=== PATIENT | female | born 1970 | race Caucasian/White ===

== ENCOUNTER 2019-04-14 14:02 | Observation (INO) | payer OTHER ==
[~2019-04-14] VITALS: Ht 153.2 cm; Wt 68.0 kg
[~2019-04-14 14:02] MED LIST: DEXILANT30 MG PO; Z.0.LEVOTHYROXINE25 PO; Z.0.LIPITOR10 MG PO; Z.0.NEXIUM40 MG PO; Z.0.ZYRTEC10 M3 PO
--- OUTSIDE RECORDS SUMMARY | 2019-04-14 14:05 | XMS REPORT | Clinical Summary ---
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 tablet 10/01/2018 Discontinued (Dose adjustment) NATURE-THROID 97.5 mg TK 1 T PO QD 2 tablet 7 Active Problems Problem Noted Date Dizziness 10/01/2018 Stress and adjustment reaction 10/01/2018 Encounters Care Team Description Date Type Specialty Carl Trinidad MA 10/05/2018 Telephone Neurology Renea Abarca MD Dizziness (Primary Dx); Stress and adjustment reaction 10/01/2018 Office Visit Neurology after 04/13/2018 Family History Medical History Relation Name Comments Suicide Attempts Father Kidney failure Mother Relation Name Status Comments Father Mother Social History Date Tobacco Use Types Packs/Day Years Used Never Smoker Smokeless Tobacco: Never Used Drinks/Week oz/Week Comments Alcohol Use 1 Glasses of wine 1.0 Yes Sex Assigned at Date Recorded Not on file Industry Job Start Date Occupation Not on file Not on file Not on file Travel End Travel History Travel Start No recent travel history available. 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 CHEMISTRY Pulse - - Temperature - - Respiratory Rate - - Oxygen Saturation - - Inhaled Oxygen Concentration 68.1 kg (150 lb 3.2 oz) 10/01/2018 8:13 AM MEDICAL TECHNOLOGIST CHEMISTRY Weight 160 cm (5' 3") 10/01/2018 8:13 AM MEDICAL TECHNOLOGIST CHEMISTRY Height 26.61 10/01/2018 8:13 AM MEDICAL TECHNOLOGIST CHEMISTRY Body Mass Index Plan of Treatment Health Maintenance Due Date Last Done Comments CERVICAL CANCER SCREENING 02/16/1993 INFLUENZA VACCINE 03/17/2019 Results Not on fileafter 04/13/2018 Insurance Type Payer Benefit Subscriber ID Effective Phone Address Plan / Dates Group PPO AETNA AETNA PPO xxxxxxxxxx [id number] OPEN resent CHOICE Advance Directives For more information, please contact: [phone] 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
--- OUTSIDE RECORDS SUMMARY | 2019-04-14 14:06 | XMS REPORT | Summary of Care ---
Author Author [facility] Organization [facility] Address Unknown Phone Unavailable Encounter HQ Otoniel(YAZAN) [id number] Date(s): 01/13/18 - 01/13/18 [facility] [address] [place] [address]- Discharge Disposition: Home or Self Care Attending Physician: Kalyani Montoya MD Referring Physician: Kalyani Montoya MD Vital Signs No data available for this section Problem List Condition Effective Dates Status Health Status Informant Acid Active reflux(Confirmed) Hyperlipidemia(Confi Active rmed) Allergies, Adverse Reactions, Alerts Substance Reaction Severity Status penicillins Codeine Phosphate,Miscellaneous Active Routes,compounding codeine Active Singulair Active Medications No data available for this section Results No data available for this section Immunizations No data available for this section Procedures Procedure Date Related Diagnosis Body Site Status Appendectomy1 Completed Cervical ablation Completed Cholecystectomy Completed Excisional biopsy of breast mass2 Completed Fundoplication3 Completed Operation4 Completed [id number] Social History Social History Type Response Alcohol Current, Type Beer, Wine, Liquor. Frequency: 1-2 times per month. Previous treatment: None. Smoking Status Never smoker; Exposure to Tobacco Smoke None; Cigarette Smoking Last 365 Days No; Reg Smoking Cessation Counseling No entered on: 09/29/16 Assessment and Plan No data available for this section
--- OUTSIDE RECORDS SUMMARY | 2019-04-14 14:06 | XMS REPORT ---
[facility] Address Unknown Phone Unavailable Care Team Providers Care Party Chief Name Role Phone Unavailable Unavailable Payers Payer Name Policy Type Policy Number Effective Date Expiration Date Problems This patient has no known problems. Allergies, Adverse Reactions, Alerts Allergy Name Allergy Type Status Severity Reaction(s) Onset Date Inactive Date Treating Clinician Comments Penicillins DA Active 2018-10-05 00:00:00 codeine DA Active 2018-10-05 00:00:00 Medications This patient has no known medications. Results Test Description Test Time Test Comments Text Results Atomic Results Result Comments BASIC METABOLIC PANEL 2018-10-05 15:07:00 SODIUM (test code=NA) 141 mEq/L 134-147 POTASSIUM (test code=K) 3.8 mEq/L 3.4-5.0 CHLORIDE (test code=CL) 109 mEq/L 100-108 CARBON DIOXIDE (test code=CO2) 27 mEq/L 21-33 ANION GAP (test code=GAP) 9 0-20 GLUCOSE (test code=GLU) 87 mg/dL 70-110 BLOOD UREA NITROGEN (test code=BUN) 12 mg/dL 7-18 GLOMERULAR FILTRATION RATE (test code=GFR) 77.2 95-105 Units of measure=ml/min/1.73 m2 CREATININE (test code=CREAT) 0.8 mg/dL 0.6-1.3 CALCIUM (test code=CA) 8.8 mg/dL 8.0-10.5 [id number] 15:07:00* Test Item Value Reference Range Comments TROPONIN-I (test code=TROPI) < 0.015 ng/mL 0.000-0.045 Negative: <=0.045 Positive: >=0.046 Correlation with serial results, other cardiac markers andclinical findings is necessary to determine the clinicalsignificance of this result. Results using different methodologies should not be comparedto one another as quantitative results may vary by method. [id number] 15:06:00* Test Item Value Reference Range Comments D-DIMER (test code=DDIMER) 416 ng/mlFEU <=500 THROMBOSIS AND/OR PULMONARY EMBOLISM AND THE CLINICAL CUT- OFF VALUE FOR EXCLUSION (500 ng/mL FEU) OF THESE CONDITIONSIS VALIDATED BY THE HOSE TUBING BACKER OF THE METHOD. A NEGATIVE D-DIMER RESULT WHEN COMBINED WITH A CLINICALASSESSMENT OF LOW PRETEST PROBABILITY HAS BEEN SHOWN TO HAVEA HIGH NEGATIVE PREDICTIVE VALUE OF DVT OR PE. D-DIMER VALUES >500 ng/mL FEU ARE NOT DIAGNOSTIC FOR DVT, PEor DIC WITHOUT OTHER CONFIRMATORY TESTS AND APPROPRIATECLINICAL EUALUATIONS. CBC W/AUTO [id number] 14:56:00* Test Item Value Reference Range Comments WHITE BLOOD CELL (test code=WBC) 9.35 x10 3/uL 4.5-11.0 RED BLOOD CELL (test code=RBC) 4.83 x10 6/uL 3.54-5.02 HEMOGLOBIN (test code=HGB) 14.6 g/dL 11.0-15.0 HEMATOCRIT (test code=HCT) 44.8 % 33.0-45.0 MEAN CELL VOLUME (test code=MCV) 92.8 fL 81.0-99.0 MEAN CELL HGB (test code=MCH) 30.2 pg 27.0-33.0 MEAN CELL HGB CONCETRATION (test code=MCHC) 32.6 g/dL 33.0-37.0 RED CELL DISTRIBUTION WIDTH CV (test code=RDW) 12.2 % 11.5-14.5 RED CELL DISTRIBUTION WIDTH SD (test code=RDW-SD) 42.0 fL 37.0-54.0 PLATELET COUNT (test code=PLT) 334 x10 3/uL 150-400 MEAN PLATELET VOLUME (test code=MPV) 10.5 fL 7.0-9.0 NEUTROPHIL % (test code=NT%) 64.3 % 56.0-77.0 IMMATURE GRANULOCYTE % (test code=IG%) 0.3 % 0.0-2.0 LYMPHOCYTE % (test code=LY%) 26.1 % 14.0-32.0 MONOCYTE % (test code=MO%) 7.1 % 4.8-9.0 EOSINOPHIL % (test code=EO%) 1.8 % 0.3-3.7 BASOPHIL % (test code=BA%) 0.4 % 0.0-2.0 NUCLEATED RBC % (test code=NRBC%) 0.0 % 0-0 NEUTROPHIL # (test code=NT#) 6.01 x10 3/uL 2.0-7.6 IMMATURE GRANULOCYTE # (test code=IG#) 0.03 x10 3/uL 0.00-0.03 LYMPHOCYTE # (test code=LY#) 2.44 x10 3/uL 1.0-3.8 MONOCYTE # (test code=MO#) 0.66 x10 3/uL 0.1-0.8 EOSINOPHIL # (test code=EO#) 0.17 x10 3/uL 0.0-0.2 BASOPHIL # (test code=BA#) 0.04 x10 3/uL 0.0-0.2 NUCLEATED RBC # (test code=NRBC#) 0.00 x10 3/uL 0.0-0.1 MANUAL DIFF REQUIRED (test code=MDIFF) NO - XR CHEST 2 [id number] 14:11:00 FAX: Silvia An MD [phone] [place]: St: REG FAX: Leydi Hines MD [phone] Name: TEJA MÉNDEZ [facility] : 1970 Age/S: 48/F [address] [place] [address] Unit #: [id number] Loc: [place] [address] Phys: Silvia An MD Acct: [id number] Dis Date: Status: REG ER PHONE #: [phone] Exam Date: 10/05/2018 1401 FAX #: [phone] Reason: Chest Pain EXAMS: CPT CODE: [id number] XR CHEST 2 V 13302 EXAM: CHEST TWO VIEW HISTORY: 48 old female with chest pain COMPARISON: None. FINDINGS: The lungs are clear. The cardiomediastinal silhouette is normal for projection. No acute osseous abnormality. IMPRESSION: 1. No acute cardiopulmonary abnormality. SL: [id number] at 1411 Reported and signed by: Arun Jerez M.D. CC: Silvia An MD; Leydi Ledbetter M.D Technologist: RT Usha(R) Trnscrd Date/Time/By: 10/05/2018 (2989) : By: [email or web address] Orig Print D/T: S: 10/05/2018 (8089) PAGE 1 Signed Report SCR MAMM BILATERAL MARJORIE CAD [id number] 09:32:48 - SCR MAMM BILATERAL MARJORIE CAD DIGITALBILATERAL DIGITAL SCREENING MAMMOGRAM 3D/2D WITH CAD: 07/24/2018CLINICAL: Asymptomatic. Digital breast tomosynthesis was performed in addition to routine CC and MLO views. Current mammographic images were evaluated by either a [employer] M-Vu or a [employer] CAD (computer aided detection system). No prior exams were available for comparison. The tissue of both breasts is heterogeneously dense. This may lower the sensitivity of ma mmography. There is a benign intramammary node in both breasts. No suspicious mass, architectural distortion, malignant type calcification, or lymph node abno rmality detected. IMPRESSION: BENIGNThere is no mammographic evidence of malign terry. Resume annual screening mammography in one year. Malika lafleur l/:08/05/2018 09:32:48 Addiction Treatment Counselor: Carmita Waters, [facility]-FWletter sent: BIRADS 1-2 Normal Mammogram BI-RADS: 2 Benign
--- OUTSIDE RECORDS SUMMARY | 2019-04-14 14:06 | XMS REPORT | Summary of Care ---
Author Author [facility] Address Unknown Phone Unavailable Encounter HQ Encntr_alias(FIN) [id number] Date(s): 05/28/15 - 05/28/15 [facility] [address] [place], [place] [address]- [phone] Discharge Disposition: Home Attending Physician: Krissy Garcia MD Vital Signs No data available for this section Problem List No data available for this section Allergies, Adverse Reactions, Alerts Substance Reaction Severity Status codeine Active penicillins Codeine Phosphate,Miscellaneous Active Routes,compounding Singulair Active Medications No data available for this section Results No data available for this section Immunizations No data available for this section Procedures No data available for this section Social History No data available for this section Assessment and Plan No data available for this section
--- OUTSIDE RECORDS SUMMARY | 2019-04-14 14:06 | XMS REPORT | Continuity of Care Document ---
Author Author [place] Address Unknown Phone Unavailable Care Team Providers Care Survey Chief Name Role Phone Headspace Information Passman Unavailable Unavailable Problems Problem Status Onset Date Classification Date Reported Comments Source K21.9 Active 01/08/2018 [facility] Z12.31 Active 06/04/2016 [facility] Z12.13 - ENCNTR SCREEN FOR MALIGNANT NE Active 03/07/2016 [facility] K21.9, K44.9 Active 06/05/2015 [facility] UNK Active 06/05/2015 [facility] BLOATING; EARLY SATIETY Active 05/24/2015 [facility] GERD//ICD K21.9 Active 05/15/2015 [facility] Final: Abdominal distension (gaseous) 06/02/2015 [facility] Final: Early satiety 06/02/2015 [facility] Gastroesophageal reflux disease (disorder) [facility]) Active Problem 01/14/2019 [facility] Kidney stone (disorder) Active Problem 01/14/2019 [facility] GASTRO-ESOPHAGEAL REFLUX DISEASE WITHOUT Active [facility] DIAPHRAGMATIC HERNIA WITHOUT OBSTRUCTION Active [facility] Medications Medication Details Route Status Patient Instructions Ordering Provider Order Date Source Ketorolac Tromethamine 10 MG Oral Tablet 10 mg=1 tab, PO, Q6H, X 5 day, # 20 tab, 0 Refill(s), Pharmacy: [id number] No Longer Active 06/27/2018 [facility] Ondansetron 4 MG Disintegrating Tablet [Zofran] 4 mg=1 tab, PO, TID, Dissolve tab under tongue, # 3 tab, 0 Refill(s), Pharmacy: [id number] Active 06/27/2018 [facility] Tamsulosin hydrochloride 0.4 MG Oral Capsule [Flomax] 0.4 mg=1 cap, PO, Daily, # 30 cap, 0 Refill(s), Pharmacy: [id number] Active 06/27/2018 [facility] Zyrtec 10 mg, 2 tab, Route: PO, Drug form: TAB, Daily, Dosing Weight 68.324, kg, Start date: 06/12/15 9:00:00, Duration: 30 day, Stop date: 07/11/15 9:00:00Notes: (Same As: Zyrtec) No Longer Active 06/12/2015 [facility] heparin 5,000 unit, 1 mL, Route: SUB-Q, Drug form: INJ, Q12H, Dosing Weight 68.324, kg, Start date: 06/12/15 8:00:00, Duration: 30 day, Stop date: 07/11/15 21:00:00Notes: porcine heparin No Longer Active 06/12/2015 [facility] Thyroxine 25 microgram, 1 tab, Route: PO, Drug form: TAB, Q630AM, Dosing Weight 68.324, kg, Start date: 06/12/15 6:30:00, Duration: 30 day, Stop date: 07/11/15 6:30:00Notes: Take 1 hour before or 2 hours after meal; Enteral feeds may interefere with the absorption of this medication. (Same as:Levothroid) No Longer Active 06/12/2015 [facility] Ketorolac 15 mg, 1 mL, Route: IV, Drug form: INJ, Q6H, Dosing Weight 68.324, kg, Start date: 06/12/15 2:00:00, Duration: 1 day, Stop date: 06/12/15 20:00:00Notes: (Same as:Toradol) IV bolus must be given >15 seconds. Give IM administration slowly and deeply into the muscle. Not for use > 4 days. Inactive 06/12/2015 [facility] Ketorolac 15 mg, 1 mL, Route: IV, Drug form: INJ, Q6H, Dosing Weight 68.324, kg, Start date: 06/12/15 0:00:00, Stop date: 06/12/15 3:00:00Notes: (Same as:Toradol) IV bolus must be given >15 seconds. Give IM administration slowly and deeply into the muscle. Not for use > 4 days. No Longer Active 06/12/2015 [facility] Ketorolac 30 mg, 1 mL, Route: IV, Drug form: INJ, ONCE, Dosing Weight 68.324, kg, Start date: 06/11/15 20:17:00, Duration: 1 doses or times, Stop date: 06/11/15 20:17:00Notes: (Same as:Toradol) IV bolus must be given >15 seconds. Give IM administration slowly and deeply into the muscle. Not for use > 4 days MEDICATION WASTE Product Size: 30 mg Product Wasted: ___ mg Inactive 06/12/2015 [facility] Albuterol 0.83 MG/ML Inhalant Solution 0.5 mg, 0.6 mL, Route: INHALATION, Drug form: SOLN, Q4H, Dosing Weight 68.324, kg, Start date: 06/11/15 20:00:00, Duration: 30 day, Stop date: 07/11/15 16:00:00Notes: SEE RT DOCUMENTATION (Same as: Proventil) No Longer Active 06/12/2015 [facility] Acetaminophen 650 mg, 2 tab, Route: PO, Drug form: TAB, Q4H, Dosing Weight 68.324, kg, PRN Pain 1-3/Temp > 100.4 F, Start date: 06/11/15 19:22:00, Duration: 30 day, Stop date: 07/11/15 19:21:00Notes: Do not exceed 4 gm/day. (Same as: Tylenol) No Longer Active 06/12/2015 [facility] Albuterol 0.83 MG/ML Inhalant Solution 2.49 mg, 3 mL, Route: NEB, Drug form: SOLN, RQ4H, Dosing Weight 68.324, kg, Start date: 06/11/15 19:00:00, Duration: 30 day, Stop date: 07/11/15 15:00:00Notes: SEE RT DOCUMENTATION (Same as: Proventil) No Longer Active 06/12/2015 [facility] Acetaminophen 20 MG/ML / Hydrocodone Bitartrate 0.667 MG/ML Oral Solution 7.5 mL, Route: PO, Drug Form: SOLN, Dosing Weight 68.324, kg, Q6H, PRN Pain Score 4-6, Start date: 06/11/15 17:25:00, Duration: 30 day, Stop date: 07/11/15 17:24:00Notes: Do not exceed 4gm/day of acetaminophen. (Same as: Zolvit) No Longer Active 06/11/2015 [facility] Tylenol 650 mg, 20.31 mL, Route: PO, Drug form: LIQ, Q6H, Dosing Weight 68.324, kg, PRN Pain 1-3/Temp > 100.4 F, Start date: 06/11/15 17:25:00, Duration: 30 day, Stop date: 07/11/15 17:24:00Notes: Max van wjjoumefvq=2611 mg/day (4 g/day) (Same as: Tylenol) No Longer Active 06/11/2015 [facility] Levofloxacin 500 mg, 2 tab, Route: PO, Drug form: TAB, XVGF12P, Dosing Weight 68.324, kg, Start date: 06/11/15 17:00:00, Stop date: 07/10/15 17:00:00Notes: Do not give w/antacids, dairy pdt & minerals Take 1 hr before or 2 hr after dairy pdt (Same as:Levaquin) No Longer Active 06/11/2015 [facility] Morphine 4 mg, 2 mL, Route: IVP, Drug form: INJ, Q4H, Dosing Weight 68.324, kg, PRN Pain Score 1-5, Start date: 06/11/15 16:36:00, Duration: 30 day, Stop date: 07/11/15 16:35:00Notes: (Same as:MORPhine Sulfate) No Longer Active 06/11/2015 [facility] Sodium Chloride 0.154 MEQ/ML Injectable Solution 1,000 mL, Rate: 75 ml/hr, Infuse over: 13.3 hr, Route: IV, Dosing Weight 68.324 kg, Total Volume: 1,000, Start date: 06/11/15 16:36:00, Duration: 30 day, Stop date: 07/11/15 16:35:00 No Longer Active 06/11/2015 [facility] Zofran 4 mg, 2 mL, Route: IVP, Drug form: INJ, Q4H, Dosing Weight 68.324, kg, Start date: 06/11/15 16:00:00, Duration: 30 day, Stop date: 07/11/15 12:00:00Notes: (Same as: Zofran) MEDICATION WASTE Product Size: 4 mg Product Wasted: ___ mg No Longer Active 06/11/2015 [facility] heparin 5,000 unit, Route: SUB-Q, ONCE, Dosing Weight 68.324, kg, Start date: 06/11/15 11:23:00, Stop date: 06/11/15 11:23:00 Inactive 06/11/2015 [facility] Levaquin 500 mg, Route: IVPB, ONCE, Dosing Weight 68.324, kg, Start date: 06/11/15 11:23:00, Stop date: 06/11/15 11:23:00 Inactive 06/11/2015 [facility] Calcium Chloride 0.0014 MEQ/ML / Potassium Chloride 0.004 MEQ/ML / Sodium Chloride 0.103 MEQ/ML / Sodium Lactate 0.028 MEQ/ML Injectable Solution 1,000 mL, Rate: 25 ml/hr, Infuse over: 40 hr, Route: IV, Dosing Weight 68.324 kg, Total Volume: 1,000, Start date: 06/11/15 11:10:00, Duration: 30 day, Stop date: 07/11/15 11:09:00 Inactive 06/11/2015 [facility] pitavastatin 4 MG Oral Tablet [Livalo] 4 mg=1 tab, PO, Daily, # 30 tab, 1 Refill(s) Active 06/07/2015 [facility] cetirizine hydrochloride 10 MG Oral Tablet [Zyrtec] 10 mg=1 tab, PO, Daily, # 30 tab, 0 Refill(s) Active 06/07/2015 [facility] {7 (Ethinyl Estradiol 0.01 MG Oral Tablet) / 84 (Ethinyl Estradiol 0.02 MG / Levonorgestrel 0.1 MG Oral Tablet) } Pack [Amethia Lo Day] 1 tab, PO, Daily, 0 Refill(s) Active 06/07/2015 [facility] Esomeprazole 40 MG Enteric Coated Capsule [Nexium] 40 mg=1 cap, PO, Daily, # 30 cap, 0 Refill(s) Active 06/07/2015 [facility] levothyroxine 25 mcg (0.025 mg) oral tablet 25 microgram=1 tab, PO, Daily, # 30 tab, 0 Refill(s) Active 06/07/2015 [facility] Allergies, Adverse Reactions, Alerts Substance Category Reaction Severity Reaction type Status Date Reported Comments Source codeine Assertion Drug allergy Active [facility] penicillins Assertion Codeine Phosphate,Miscellaneous Routes,compounding Drug allergy Active [facility] Singulair Assertion Drug allergy Active [facility] Immunizations No Data Provided for This Section Results Order Name Results Value Reference Range Date Interpretation Comments Source URINE AND STOOL POC UA Uro 0.2 0.1 - 1.0 06/27/2018 [facility] URINE AND STOOL POC UA Turbidity Clear *NA* (06/26/18 7:39 PM) Clear 06/27/2018 [facility] URINE AND STOOL POC UA SG >=1.030 *ABN* (06/26/18 7:39 PM) <=1.030 06/27/2018 [facility] URINE AND STOOL POC UA Color Yellow *NA* (06/26/18 7:39 PM) Yellow 06/27/2018 [facility] URINE AND STOOL POC UA Bili Negative *NA* (06/26/18 7:39 PM) Negative 06/27/2018 [facility] URINE AND STOOL POC UA Glu Negative mg/dL Negative mg/dL 06/27/2018 [facility] URINE AND STOOL POC UA Ket Negative mg/dL Negative mg/dL 06/27/2018 [facility] URINE AND STOOL POC UA Prot Negative mg/dL Negative mg/dL 06/27/2018 [facility] URINE AND STOOL POC UA pH 5.0 5.0 - 8.0 06/27/2018 [facility] URINE AND STOOL POC UA Bld Moderate *ABN* (06/26/18 7:39 PM) Negative 06/27/2018 [facility] URINE AND STOOL POC UA LeukEst Negative *NA* (06/26/18 7:39 PM) Negative 06/27/2018 [facility] URINE AND STOOL POC UA Nit Negative *NA* (06/26/18 7:39 PM) Negative 06/27/2018 [facility] ELECTROLYTES AGAP 13.2 10.0 - 20.0 06/13/2015 [facility] ELECTROLYTES CO2 26 24 - 32 06/13/2015 [facility] ELECTROLYTES BUN 4 7 - 22 06/13/2015 [facility] ELECTROLYTES eGFR 91 06/13/2015 Result Comment: The eGFR is calculated using the CKD-EPI formula. In most young, healthy individuals the eGFR will be >90 mL/min/1.73m2. The eGFR declines with age. An eGFR of 60-89 may be normal in some populations, particularly the elderly, for whom the CKD-EPI formula has not been extensively validated. Use of the eGFR is not recommended in the following populations:

Individuals with unstable creatinine concentrations, including patients and those with serious co-morbid conditions.

Patients with extremes in muscle mass or diet.

The data above are obtained from the National Kidney Disease Education Program (NKDEP) which additionally recommends that when the eGFR is used in patients with extremes of body mass index for purposes of drug dosing, the eGFR should be multiplied by the estimated BMI. [facility] ELECTROLYTES Potassium Lvl 4.2 3.5 - 5.1 06/13/2015 [facility] ELECTROLYTES Glucose Lvl 106 70 - 99 06/13/2015 [facility] ELECTROLYTES Creatinine Lvl 0.8 0.5 - 1.4 06/13/2015 [facility] ELECTROLYTES Chloride Lvl 104 95 - 109 06/13/2015 [facility] ELECTROLYTES Sodium Lvl 139 135 - 145 06/13/2015 [facility] ELECTROLYTES Calcium Lvl 8.5 8.5 - 10.5 06/13/2015 [facility] HEMATOLOGY Eosinophils # 0.1 0.0 - 0.5 06/13/2015 [facility] HEMATOLOGY Monocytes # 0.9 0.0 - 0.8 06/13/2015 [facility] HEMATOLOGY Basophils # 0.1 0.0 - 0.2 06/13/2015 [facility] HEMATOLOGY Lymphocytes 11.7 20.0 - 40.0 06/13/2015 [facility] HEMATOLOGY Segs 79.2 45.0 - 75.0 06/13/2015 [facility] Lymphocytes # 1.5 1.0 - 5.5 06/13/2015 [facility] HEMATOLOGY Segs-Bands # 9.9 1.5 - 8.1 06/13/2015 [facility] HEMATOLOGY Eosinophils 1.2 0.0 - 4.0 06/13/2015 [facility] HEMATOLOGY Monocytes 7.0 2.0 - 12.0 06/13/2015 [facility] HEMATOLOGY Basophils 0.9 0.0 - 1.0 06/13/2015 [facility] HEMATOLOGY MPV 8.9 7.4 - 10.4 06/13/2015 [facility] HEMATOLOGY RDW 13.3 11.5 - 14.5 06/13/2015 [facility] HEMATOLOGY Platelet 274 133 - 450 06/13/2015 [facility] MCH 27.7 27.0 - 31.0 06/13/2015 [facility] HEMATOLOGY MCHC 32.1 32.0 - 36.0 06/13/2015 [facility] HEMATOLOGY Hct 37.3 36.0 - 48.0 06/13/2015 [facility] HEMATOLOGY MCV 86.3 80.0 - 98.0 06/13/2015 [facility] HEMATOLOGY Hgb 12.0 12.0 - 16.0 06/13/2015 [facility] HEMATOLOGY WBC 12.4 3.7 - 10.4 06/13/2015 [facility] HEMATOLOGY RBC 4.32 4.20 - 5.40 06/13/2015 [facility] ELECTROLYTES Chloride Lvl 106 95 - 109 06/12/2015 [facility] ELECTROLYTES Potassium Lvl 3.8 3.5 - 5.1 06/12/2015 [facility] ELECTROLYTES Sodium Lvl 140 135 - 145 06/12/2015 [facility] ELECTROLYTES eGFR 79 06/12/2015 Result Comment: The eGFR is calculated using the CKD-EPI formula. In most young, healthy individuals the eGFR will be >90 mL/min/1.73m2. The eGFR declines with age. An eGFR of 60-89 may be normal in some populations, particularly the elderly, for whom the CKD-EPI formula has not been extensively validated. Use of the eGFR is not recommended in the following populations:

Individuals with unstable creatinine concentrations, including patients and those with serious co-morbid conditions.

Patients with extremes in muscle mass or diet.

The data above are obtained from the National Kidney Disease Education Program (NKDEP) which additionally recommends that when the eGFR is used in patients with extremes of body mass index for purposes of drug dosing, the eGFR should be multiplied by the estimated BMI. [facility] ELECTROLYTES Total Protein 5.2 6.4 - 8.4 06/12/2015 [facility] ELECTROLYTES CO2 22 24 - 32 06/12/2015 [facility] ELECTROLYTES Creatinine Lvl 0.9 0.5 - 1.4 06/12/2015 [facility] ELECTROLYTES Glucose Lvl 117 70 - 99 06/12/2015 [facility] ELECTROLYTES Calcium Lvl 7.9 8.5 - 10.5 06/12/2015 [facility] ELECTROLYTES BUN 6 7 - 22 06/12/2015 [facility] ELECTROLYTES Globulin 2.5 2.0 - 4.0 06/12/2015 [facility] ELECTROLYTES A/G Ratio 1.1 0.7 - 1.6 06/12/2015 [facility] ELECTROLYTES B/C Ratio 7 6 - 25 06/12/2015 [facility] ELECTROLYTES AGAP 15.8 10.0 - 20.0 06/12/2015 [facility] ELECTROLYTES Bili Total 0.3 0.2 - 1.3 06/12/2015 [facility] ELECTROLYTES Alk Phos 45 39 - 136 06/12/2015 [facility] ELECTROLYTES AST 158 0 - 37 06/12/2015 [facility] ELECTROLYTES ALT 260 0 - 65 06/12/2015 [facility] ELECTROLYTES Albumin Lvl 2.7 3.5 - 5.0 06/12/2015 [facility] HEMATOLOGY MPV 9.0 7.4 - 10.4 06/12/2015 [facility] HEMATOLOGY RDW 13.1 11.5 - 14.5 06/12/2015 [facility] HEMATOLOGY MCH 27.7 27.0 - 31.0 06/12/2015 [facility] HEMATOLOGY Platelet 259 133 - 450 06/12/2015 [facility] HEMATOLOGY MCHC 32.1 32.0 - 36.0 06/12/2015 [facility] HEMATOLOGY RBC 4.10 4.20 - 5.40 06/12/2015 [facility] HEMATOLOGY WBC 14.0 3.7 - 10.4 06/12/2015 [facility] HEMATOLOGY MCV 86.2 80.0 - 98.0 06/12/2015 [facility] HEMATOLOGY Hgb 11.3 12.0 - 16.0 06/12/2015 [facility] HEMATOLOGY Hct 35.3 36.0 - 48.0 06/12/2015 [facility] CHEM PANEL Magnesium Lvl 1.3 1.8 - 2.4 06/11/2015 [facility] ELECTROLYTES AGAP 15.0 10.0 - 20.0 06/11/2015 [facility] ELECTROLYTES B/C Ratio 14 6 - 25 06/11/2015 [facility] ELECTROLYTES Globulin 2.7 2.0 - 4.0 06/11/2015 [facility] ELECTROLYTES A/G Ratio 1.1 0.7 - 1.6 06/11/2015 [facility] ELECTROLYTES eGFR 91 06/11/2015 Result Comment: The eGFR is calculated using the CKD-EPI formula. In most young, healthy individuals the eGFR will be >90 mL/min/1.73m2. The eGFR declines with age. An eGFR of 60-89 may be normal in some populations, particularly the elderly, for whom the CKD-EPI formula has not been extensively validated. Use of the eGFR is not recommended in the following populations:

Individuals with unstable creatinine concentrations, including patients and those with serious co-morbid conditions.

Patients with extremes in muscle mass or diet.

The data above are obtained from the National Kidney Disease Education Program (NKDEP) which additionally recommends that when the eGFR is used in patients with extremes of body mass index for purposes of drug dosing, the eGFR should be multiplied by the estimated BMI. [facility] ELECTROLYTES Bili Total 0.3 0.2 - 1.3 06/11/2015 [facility] ELECTROLYTES ALT 194 0 - 65 06/11/2015 [facility] ELECTROLYTES AST 169 0 - 37 06/11/2015 [facility] ELECTROLYTES Alk Phos 47 39 - 136 06/11/2015 [facility] ELECTROLYTES Calcium Lvl 8.0 8.5 - 10.5 06/11/2015 [facility] ELECTROLYTES Total Protein 5.6 6.4 - 8.4 06/11/2015 [facility] ELECTROLYTES Albumin Lvl 2.9 3.5 - 5.0 06/11/2015 [facility] ELECTROLYTES Creatinine Lvl 0.8 0.5 - 1.4 06/11/2015 [facility] ELECTROLYTES CO2 19 24 - 32 06/11/2015 [facility] ELECTROLYTES Glucose Lvl 119 70 - 99 06/11/2015 [facility] ELECTROLYTES BUN 11 7 - 22 06/11/2015 [facility] ELECTROLYTES Potassium Lvl 5.0 3.5 - 5.1 06/11/2015 [facility] ELECTROLYTES Sodium Lvl 138 135 - 145 06/11/2015 [facility] ELECTROLYTES Chloride Lvl 109 95 - 109 06/11/2015 [facility] HEMATOLOGY WBC 22.8 3.7 - 10.4 06/11/2015 [facility] HEMATOLOGY Hgb 12.2 12.0 - 16.0 06/11/2015 [facility] HEMATOLOGY RBC 4.44 4.20 - 5.40 06/11/2015 [facility] HEMATOLOGY Platelet 345 133 - 450 06/11/2015 [facility] HEMATOLOGY MPV 8.8 7.4 - 10.4 06/11/2015 [facility] MCHC 32.1 32.0 - 36.0 06/11/2015 [facility] HEMATOLOGY RDW 13.6 11.5 - 14.5 06/11/2015 [facility] HEMATOLOGY MCV 85.7 80.0 - 98.0 06/11/2015 [facility] HEMATOLOGY MCH 27.5 27.0 - 31.0 06/11/2015 [facility] HEMATOLOGY Hct 38.0 36.0 - 48.0 06/11/2015 [facility] HEMATOLOGY Monocytes # 1.0 0.0 - 0.8 06/11/2015 [facility] HEMATOLOGY Basophils # 0.1 0.0 - 0.2 06/11/2015 [facility] HEMATOLOGY Segs-Bands # 19.7 1.5 - 8.1 06/11/2015 [facility] HEMATOLOGY Lymphocytes # 1.9 1.0 - 5.5 06/11/2015 [facility] HEMATOLOGY Eosinophils 0.1 0.0 - 4.0 06/11/2015 [facility] HEMATOLOGY Basophils 0.6 0.0 - 1.0 06/11/2015 [facility] HEMATOLOGY Monocytes 4.6 2.0 - 12.0 06/11/2015 [facility] HEMATOLOGY Lymphocytes 8.4 20.0 - 40.0 06/11/2015 [facility] HEMATOLOGY Segs 86.3 45.0 - 75.0 06/11/2015 [facility] URINE CHEM U Preg Negative (06/11/15 10:15 AM) Negative 06/11/2015 [facility] BLOOD BANK RESULTS RBC product Product available (06/07/15 8:30 AM) 06/07/2015 [facility] BLOOD BANK RESULTS Antibody Scrn Negative (06/07/15 7:34 AM) 06/07/2015 [facility] BLOOD BANK RESULTS ABO/Rh AB POS 06/07/2015 [facility] CHEM PANEL Bili Total 0.3 0.2 - 1.3 06/07/2015 [facility] CHEM PANEL Alk Phos 52 39 - 136 06/07/2015 [facility] CHEM PANEL ALT 22 0 - 65 06/07/2015 [facility] CHEM PANEL AST 8 0 - 37 06/07/2015 [facility] CHEM PANEL Albumin Lvl 3.7 3.5 - 5.0 06/07/2015 [facility] CHEM PANEL Total Protein 7.5 6.4 - 8.4 06/07/2015 [facility] CHEM PANEL Globulin 3.8 2.0 - 4.0 06/07/2015 [facility] CHEM PANEL A/G Ratio 1.0 0.7 - 1.6 06/07/2015 [facility] CHEM PANEL B/C Ratio 19 6 - 25 06/07/2015 [facility] ENDOCRINOLOGY S Preg Negative *NA* (06/07/15 7:34 AM) Negative 06/07/2015 [facility] HEMATOLOGY Eosinophils 1.5 0.0 - 4.0 06/07/2015 [facility] HEMATOLOGY Segs 71.3 45.0 - 75.0 06/07/2015 [facility] HEMATOLOGY Basophils 0.3 0.0 - 1.0 06/07/2015 [facility] HEMATOLOGY Lymphocytes # 1.9 1.0 - 5.5 06/07/2015 [facility] HEMATOLOGY Monocytes 5.4 2.0 - 12.0 06/07/2015 [facility] HEMATOLOGY Segs-Bands # 6.2 1.5 - 8.1 06/07/2015 [facility] HEMATOLOGY Lymphocytes 21.5 20.0 - 40.0 06/07/2015 [facility] HEMATOLOGY Monocytes # 0.5 0.0 - 0.8 06/07/2015 [facility] HEMATOLOGY Eosinophils # 0.1 0.0 - 0.5 06/07/2015 [facility] HEMATOLOGY PTT 28.7 22.9 - 35.8 06/07/2015 [facility] HEMATOLOGY INR 0.91 0.85 - 1.17 06/07/2015 [facility] HEMATOLOGY PT 12.6 12.0 - 14.7 06/07/2015 [facility] URINE AND STOOL UA Hyal Cast 1 0 - 2 06/07/2015 [facility] URINE AND STOOL UA RBC 2 0 - 2 06/07/2015 [facility] URINE AND STOOL UA Bacteria Occasional /HPF None Seen /HPF 06/07/2015 [facility] URINE AND STOOL UA Mucus Few /LPF None Seen /LPF 06/07/2015 [facility] URINE AND STOOL UA Sq Epi Occasional /LPF Few /LPF 06/07/2015 [facility] URINE AND STOOL UA WBC 1 0 - 5 06/07/2015 [facility] URINE AND STOOL UA Ketones Negative *NA* (06/07/15 7:34 AM) Negative 06/07/2015 [facility] URINE AND STOOL UA Leuk Est Negative (06/07/15 7:34 AM) Negative 06/07/2015 [facility] URINE AND STOOL UA Bili Negative *NA* (06/07/15 7:34 AM) Negative 06/07/2015 [facility] URINE AND STOOL UA Blood Small *ABN* (06/07/15 7:34 AM) Negative 06/07/2015 [facility] URINE AND STOOL UA Glucose Negative (06/07/15 7:34 AM) Negative 06/07/2015 [facility] URINE AND STOOL UA Urobilinogen 0.2 0.1 - 1.0 06/07/2015 [facility] URINE AND STOOL UA Nitrite Negative (06/07/15 7:34 AM) Negative 06/07/2015 [facility] URINE AND STOOL UA Protein Negative (06/07/15 7:34 AM) Negative 06/07/2015 [facility] URINE AND STOOL UA Turbidity Clear (06/07/15 7:34 AM) Clear 06/07/2015 [facility] URINE AND STOOL UA pH 5.0 5.0 - 8.0 06/07/2015 [facility] URINE AND STOOL UA Spec Grav 1.025 <=1.030 06/07/2015 [facility] URINE AND STOOL UA Color Yellow *NA* (06/07/15 7:34 AM) Yellow 06/07/2015 [facility] Pathology Reports No Data Provided for This Section Diagnostic Reports Report Value Date Source Barium Swallow w Esophagus Function DX Patient Name: TEJA MÉNDEZ : 1970; Age: 47 years y/o Female MR: [id number] Study: Barium Swallow w Esophagus Function DX 01/13/2018 8:27 AM CDT Clinical Indication: - K21.9 Gastro-esophageal reflux disease without esophagitis. Status post fundoplication x2. Reflux type symptoms. COMPARISON: None FLUOROSCOPY TIME: 2 minutes Dose: 46.52mGy TECHNIQUE: Thin barium was utilized for recumbent prone oblique and LPO images. Thick barium was utilized for upright imaging of the esophagus and pharynx. Senthil cracker mixed with barium was given to evaluate motility with solids. FINDINGS: There is no delay in passage of the barium bolus from the pharynx into the esophagus. The cricopharyngeus relaxes normally. There is no evidence for cricopharyngeal bar or Zenker's diverticulum. Prone and LPO images of the esophagus reveal normal esophageal caliber. There is a 3-4 cm recurrent hernia of the left lip of the fundoplication. Small degree of reflux is noted to lower esophagus. Upright images with thick barium reveals no significant dysmotility. No mass lesions or strictures are visualized. Subsequently 2 separate swallows of a small piece of senthil cracker and barium were fluoroscopically followed through the length of the esophagus. There is no significant delay in passage of both solid boluses from the pharynx to the esophagus and subsequently into the stomach. IMPRESSION: 3-4 cm recurrent hernia of the left lip of the fundoplication. [id number] 01/13/2018 [facility] Digital Mammo Screen Lane MA w marjorie - DIGITAL MAMMO SCREEN LANE MA W MARJORIE BILATERAL DIGITAL SCREENING MAMMOGRAM 3D/2D WITH CAD: 06/07/2016 CLINICAL: Routine. 2D digital mammographic images and 3D digital tomosynthesis images were obtained in the CC and MLO projections. Current study was evaluated with a Computer Aided Detection (CAD) system. Comparison is made to exams dated: 05/28/2015 mammogram and 06/11/2009 mammogram - [facility]. The tissue of both breasts is heterogeneously dense, which could obscure detection of small masses. There are benign intramammary nodes in the right breast. There also is a benign intramammary node in the left breast. No significant masses, calcifications, or other findings are seen in either breast. There has been no significant interval change. IMPRESSION: BENIGN There is no mammographic evidence of malignancy. A 1 year screening mammogram is recommended. Mee ozuna/penrad:06/09/2016 08:22:41 Electrician Apprentice: Renetta Waters, [facility] This exam was dictated and interpreted by [id number] for [facility] Breast [place]. letter sent: Normal exam Mammogram BI-RADS: 2 Benign 06/07/2016 [facility] 1view DX PROCEDURE: Chest 1view CLINICAL INFORMATION Tube placement/removal/reposition COMPARISON: 05/2015 multiple x-rays Left apical pneumothorax is no longer visualized. Decreased left lower neck subcutaneous emphysema. Left lower lobe atelectasis with small effusion. Stable right middle lobe atelectasis. No pneumothorax. Normal pulmonary vasculature. SL: 13 06/13/2015 [facility] 1view DX CLINICAL HISTORY: Tube placement. One view chest. Comparison 06/11/2015. Developing bibasilar subsegmental atelectasis. Trace left apical pneumothorax. (This was present in retrospect on previous study and is now smaller). Improving subcutaneous emphysema at the base of the neck on the left. SL:13 06/12/2015 [facility] 1view DX Examination: Chest x-ray, single view History: Pain Post injury Comparison: 06/07/2015 Findings: The lungs are clear and without focal consolidation. The cardiomediastinal silhouette is within normal limits. No pleural effusion or pneumothorax is seen. The osseous structures are without focal abnormality. Mild left basilar scarring is seen. Left supraclavicular soft tissue gas is seen. IMPRESSION: No acute cardiopulmonary disease. SL: 16 06/11/2015 [facility] Chest 2 views DX Examination: Chest x-ray, 2 views History: Coughing Comparison: None. Findings: The lungs are clear and without focal consolidation. The cardiomediastinal silhouette is within normal limits. No pleural effusion or pneumothorax is seen. The osseous structures are without focal abnormality. IMPRESSION: No acute cardiopulmonary disease. SL: 16 06/07/2015 [facility] Stomach emptying NM Gastric Emptying Study. COMPARISON: Video esophagram 05/17/2015 TECHNIQUE: 1 mCi of sulfur colloid meal was administered orally. Images were performed in anterior projection and an excretion curve plotted. FINDINGS: There is prompt activity identified within the stomach but mild to moderate delay in excretion into the small bowel thereafter. The slope of the excretion curve is mildly flattened. The T half life is 147 minutes. (Normal range of 45min- 110min). % excretion at approx. 60 minutes: Essentially no excretion % excretion at approx. 90 minutes: 26% % excretion at approx. 120 minutes: 35% % excretion at approx. 180 minutes: 68% % excretion at approx. 240 minutes: 82% IMPRESSION: Moderate delay in gastric emptying. SL:13 05/30/2015 [facility] Digital Mammo Screen Lane MA w marjorie - DIGITAL MAMMO SCREEN LANE MA W MARJORIE BILATERAL DIGITAL SCREENING MAMMOGRAM 3D/2D WITH CAD: 05/28/2015 CLINICAL: Routine/R92.2. 2D digital mammographic images and 3D digital tomosynthesis images were obtained in the CC and MLO projections. Current study was evaluated with a Computer Aided Detection (CAD) system. Comparison is made to exam dated: 06/11/2009 mammogram - [facility]. The tissue of both breasts is heterogeneously dense, which could obscure detection of small masses. Multiple obscured and circumscribed masses are noted bilaterally which are fluctuating in size consistent with benign etiology. The previously described mass in the right breast 12 o'clock position is no longer visualized. The patient does not indicate surgery in her history intake form, but a scar marker is present on her right breast. There are post operative findings in the right breast. No significant masses, calcifications, or other findings are seen in either breast. There has been no significant interval change. IMPRESSION: BENIGN There is no mammographic evidence of malignancy. A 1 year screening mammogram is recommended. Andrew painting/kirt:05/28/2015 14:20:36 Electrician Apprentice: Andrew Quiñones, [facility] This exam was dictated and interpreted by [id number] at [facility]. letter sent: Bilateral Benign Mammogram BI-RADS: 2 Benign 05/28/2015 [facility] Barium Swallow w Esophagus Function DX EXAM: Esophagram HISTORY: History of Abigail fundoplication. Recurrent gastroesophageal reflux. COMPARISON: None TECHNIQUE: The patient was given thin barium and hamburger coated with barium and video and multiple spot images were obtained. Fluoro time 4.4 minutes. Dose 100 mGy. FINDINGS: Deglutition appears normal. No pharyngeal abnormality seen. No cricopharyngeal bar seen. With the patient in prone and supine positions, a small paraesophageal hiatal hernia is seen with an apparent channel from the distal esophagus to the hiatal hernia opacified with contrast and filling the hernia. With the patient upright, the channel and hernia do not significantly opacify with contrast and are not well visualized. To-and-fro motion of liquid barium is seen in the distal esophagus with patient supine and upright and similar to-and-fro motion is seen in the distal esophagus with patient ingesting hamburger in the upright position. The esophagus is normal caliber. No delay in gastric emptying. Impression: 1. Small paraesophageal hiatal hernia with apparent channel between the distal esophagus and the hernia may reflect unwrapping of the fundoplication. 2. Esophageal dysmotility with distal esophageal reflux with liquid and hamburger. SL:13 05/17/2015 [facility] Consultation Notes No Data Provided for This Section Discharge Summaries No Data Provided for This Section History and Physicals No Data Provided for This Section Vital Signs Vital Sign Value Date Comments Source Temperature Oral (F) 97.6 F 06/27/2018 [facility] Heart Rate 86 06/27/2018 [facility] Systolic (mm Hg) 115 06/27/2018 [facility] Diastolic (mm Hg) 75 06/27/2018 [facility] BMI Calculated 26.85 06/27/2018 [facility] Weight 68.75 06/27/2018 [facility] Height 160.02 cm 06/27/2018 [facility] Heart Rate 84 06/13/2015 [facility] Systolic (mm Hg) 133 06/13/2015 [facility] Diastolic (mm Hg) 90 06/13/2015 [facility] Respitory Rate 16 06/13/2015 [facility] Temperature Oral (F) 98.3 F 06/13/2015 [facility] Respitory Rate 18 06/13/2015 [facility] Systolic (mm Hg) 130 06/13/2015 [facility] Diastolic (mm Hg) 80 06/13/2015 [facility] Temperature Oral (F) 98.5 F 06/13/2015 [facility] Heart Rate 94 06/13/2015 [facility] Respitory Rate 18 06/13/2015 [facility] Heart Rate 98 06/13/2015 [facility] Systolic (mm Hg) 124 06/13/2015 [facility] Diastolic (mm Hg) 77 06/13/2015 [facility] Temperature Oral (F) 98.9 F 06/13/2015 [facility] Systolic (mm Hg) 103 06/07/2015 [facility] Diastolic (mm Hg) 75 06/07/2015 [facility] Respitory Rate 15 06/07/2015 [facility] Systolic (mm Hg) 111 06/07/2015 [facility] Diastolic (mm Hg) 85 06/07/2015 [facility] Respitory Rate 21 06/07/2015 [facility] Respitory Rate 13 06/07/2015 [facility] Systolic (mm Hg) 107 06/07/2015 [facility] Diastolic (mm Hg) 80 06/07/2015 [facility] Heart Rate 68 06/07/2015 [facility] BMI Calculated 27.55 06/07/2015 [facility] Weight 68.324 06/07/2015 [facility] Height 157.48 cm 06/07/2015 [facility] BMI Calculated 27.55 06/07/2015 [facility] Weight 68.324 06/07/2015 [facility] Height 157.48 cm 06/07/2015 [facility] Encounters Location Location Details Encounter Type Encounter Number Reason For Visit Attending Provider ADM Date DC Date Status Source [facility]patient [id number] [facility] 05/17/2015 05/18/2015 [facility] Outpatient [id number] Krissy Garcia 05/28/2015 05/29/2015 [facility] Outpatient [id number] [facility] 05/30/2015 05/31/2015 [facility] Outpatient [id number] Kalyani Morris 06/07/2015 06/07/2015 [facility] Inpatient [id number] Moy Martinez 06/11/2015 06/13/2015 [facility] Outpatient [id number] Leydi Ledbetter 06/07/2016 06/08/2016 [facility] Outpatient [id number] JACOBO STEELE 09/14/2016 [facility] Outpatient [id number] PAUL HAMPTON 09/29/[address] [facility] Outpatient [id number] [facility] 01/13/2018 01/14/2018 [facility] Outpatient [id number] MARGARITA JENKINS 06/26/2018 [facility] [place] Outpatient [id number] [facility] Jeyson 06/27/2018 06/27/2018 [facility] Procedures Procedure Code Date Perfomer Comments Source Appendectomy<sup>1</sup> [id number] 2008 [facility] Cholecystectomy [id number] [facility] Excisional biopsy of breast mass<sup>2</sup> [id number] 2008 [facility] Fundoplication<sup>3</sup> [id number] 2008 [facility] Operation<sup>4</sup> [id number] 2007 [facility] Cervical ablation [id number] [facility] Assessment and Plan Assessment and Plan Date Source Extracted from:Title: Clinical Document Author: Moy Martinez DO Date: 06/13/15 Progress Daily [facility] Completed: May, 10:53 by Moy Martinez DO RM: 338 - 1P, SE TEJA DANGELO 45y (: 1970) F Attending: Moy Martinez DO Service: Internal Medicine Reason for Admission: K21.9, K44.9 Working DRG: None Documented Code status: None Specified=FULL CODE Current diet: Isolation: None Documented Allergies: Singulair, codeine, penicillins(Codeine Phosphate,Miscellaneous Routes,compounding) SUBJECTIVE Patient seen and examined. Events noted overnight. Labs/Images reviewed improving, less pain, ambulating lots more OBJECTIVE Labs (Last four charted values) WBC H 12.4 (JUN 13) H 14.0 (JUN 12) H 22.8 (JUN 11) 8.8 (JUN 07) Hgb 12.0 (JUN 13) L 11.3 (JUN 12) 12.2 (JUN 11) 14.1 (JUN 07) Hct 37.3 (JUN 13) L 35.3 (JUN 12) 38.0 (JUN 11) 43.9 (JUN 07) Plt 274 (JUN 13) 259 (JUN 12) 345 (JUN 11) 338 (JUN 07) Na 139 (JUN 13) 140 (JUN 12) 138 (JUN 11) 139 (JUN 07) K 4.2 (JUN 13) 3.8 (JUN 12) 5.0 (JUN 11) 3.7 (JUN 07) CO2 26 (JUN 13) L 22 (JUN 12) L 19 (JUN 11) L 23 (JUN 07) Cl 104 (JUN 13) 106 (JUN 12) 109 (JUN 11) 106 (JUN 07) Cr 0.8 (JUN 13) 0.9 (JUN 12) 0.8 (JUN 11) 1.0 (JUN 07) BUN L 4 (JUN 13) L 6 (JUN 12) 11 (JUN 11) 19 (JUN 07) Glucose Random H 106 (JUN 13) H 117 (JUN 12) H 119 (JUN 11) 83 (JUN 07) Mg L 1.3 (JUN 11) Ca 8.5 (JUN 13) L 7.9 (JUN 12) L 8.0 (JUN 11) 8.9 (JUN 07) PT 12.6 (JUN 07) INR 0.91 (JUN 07) PTT 28.7 (JUN 07) ASSESSMENT and EXAM Gen: NAD, Alert, Awake HEENT: NC/AT, PERRLA, oral area clear and moist Neck: No LAD, No JVD, trachea midline Chest: CTAB, no c/w/r CV: RRR, S1, S2 GI: +BS, S mild distention, No organomegaly Ext: no c/c/e Neuro: AOx3, no gross deficits noted Skin: No notable rashes PLAN and TREATMENT ambulating toleratign diet d/w pt about post op instructions - no heavy lifting d/w to hold statin for 2 weeks post op before resuming ok to d/c home today when cleared by surgery DIAGNOSES and PROBLEMS 1. Abigail fundoplication, status post reduction with hiatal hernia repair. 2. Transaminitis secondary to surgery. 3. Hypothyroidism. Ready for Discharge (Yes/No)? [place] still necessary (Yes/No): Line still necessary (Yes/No): 24hr Labs 06/13 0818 Glucose Lvl 106 H BUN 4 L Creatinine Lvl 0.8 Sodium Lvl 139 Potassium Lvl 4.2 Chloride Lvl 104 CO2 26 AGAP 13.2 Calcium Lvl 8.5 eGFR 91 WBC 12.4 H RBC 4.32 Hgb 12.0 Hct 37.3 MCV 86.3 MCH 27.7 MCHC 32.1 RDW 13.3 Platelet 274 MPV 8.9 Segs 79.2 H Monocytes 7.0 Lymphocytes 11.7 L Eosinophils 1.2 Basophils 0.9 Segs-Bands # 9.9 H Lymphocytes # 1.5 Monocytes # 0.9 H Eosinophils # 0.1 Basophils # 0.1 Vitals Tmp(F) Pulse BP RR SpO2 FIO2 06/13 07:59 98.3 84 133/90 16 98 --- 06/13 07:38 ---- --- ----- 18 95 21% 06/13 04:00 98.5 94 130/80 18 95 --- 06/13 00:00 98.9 98 124/77 18 98 --- 06/12 20:00 98 84 129/86 18 95 --- 24 Hr Tmax: 98.9F (37.17c) at 06/13 00:00 Vital Signs are the last 5 in the past 48 hours. Date Wt(kg) Wt(lb) Ht(cm) Ht(in) Method 06/07 (initial) 68.32 150.31 Measured 06/07 157.48 62.00 Stated I&O Record In Out Bal 06/13 24hr Tot 12 0 12 06/12 24hr Tot 32 0 32 Medications (10) Active Scheduled Meds (7): 06/11/15 albuterol (albuterol 0.083% inhalation solution) 2.49 mg NEB RQ4H 06/11/15 albuterol (albuterol 0.083% inhalation solution) 0.5 mg INHALATION Q4H 06/12/15 cetirizine (ZyrTEC) 10 mg PO Daily 06/12/15 heparin 5,000 unit SUB-Q Q12H 06/11/15 levofloxacin 500 mg PO [id number] 06/12/15 levothyroxine 25 microgram PO Q630AM 06/11/15 ondansetron (Zofran) 4 mg IVP Q4H Unscheduled Meds: None PRN Meds (3): 06/11/15 acetaminophen-hydrocodone (acetaminophen-hydrocodone 300 mg-10 mg/15 mL oral liquid) 7.5 mL PO Q6H 06/11/15 acetaminophen (Tylenol) 650 mg PO Q6H 06/11/15 acetaminophen 650 mg PO Q4H One Time Meds: None Continuous Infusions: None Extracted from:Title: Clinical Document Author: Kalyani Montoya MD Date: 06/11/15 PATIENT NAME: TEJA MÉNDEZ DATE OF OPERATION/PROCEDURE: 06/11/2015 PREPROCEDURE DIAGNOSES: 1. S/P Laparoscopic Abigail fundoplication in 2009 2. Twisted, herniated and partially undone Abigail fundoplication 2. Recurrent Hiatal hernia with paraesophageal component 3. Heartburn, nocturnal regurgitation and shortness of breath in supine position. POSTPROCEDURE DIAGNOSES: 1. S/P Laparoscopic Abigail fundoplication in 2009 2. Twisted, herniated and partially undone Abigail fundoplication 2. Recurrent Hiatal hernia with paraesophageal component 3. Heartburn, nocturnal regurgitation and shortness of breath in supine position. PROCEDURES: 1. Redo Laparoscopic reduction of twisted, hernaited and partailly undone Abigail fundoplication with recurrent hiatal hernia and paraesophageal component 2. laparoscopic lysis of adhesions 3. Laparoscopic repair of diaphragmatic hiatal hernia with primary closure and Acell mesh reinforcement 4. Take down of Abigail fundoplication 5. Toupet fundoplication 6. Flexible transoral esophagogastroscopy to assess the fundoplication and presence of leak RN NEONATAL ICU: Jazmin Roldan and Isael Castillo SURGEON: Kalyani Montoya. INDICATIONS FOR THE PROCEDURE: The patient is a 49 year-old female S/P laparoscopic Abigail fundoplication in 2009. she did well until 2011 when she had Gallbladder disease with forceful vomiting, and she then presented with progressive heartburn, nocturnal regurgitation and shortness of breath in supine position. The video esophagram showed a three cm hiatal hernia with paraesophageal component, adequate esophageal clearance and adequate passage of the barium form the stomach into the small bowel. The upper endoscopy showed a three cm hiatal hernia with paraesophageal component and twisted, herniated and partially undone Abigail f undoplication, and no retained food in the stomach. Esophageal motility study showed 100% peristaltic esophageal contractions with amplitude of contractions within normal limits. The gastric emptying showed a t1/2 of 147 minutes. Our plan was to perform a redo Laparoscopic reduction of twisted, hernaited and partailly undone Abigail fundoplication with recurrent hiatal hernia and paraesophageal component. laparoscopic lysis of adhesions, Laparoscopic repair of diaphragmatic hiatal hernia with primary closure and Acell mesh reinforcement, take down of Abigail fundoplication, Toupet fundoplication and a flexible transoral esophagogastroscopy to assess the fundoplication and presence of leak. The risks of the procedure including infection, bleeding, injury to the esophagus, stomach, spleen, postoperative leak, intraoperative cardiac event, postoperative intubation, sepsis, risk of conversion to open procedure, recurrent hernia and were all explained to the patient. She understood and agreed to proceed. PROCEDURE: Patient was brought to the operating room and was placed on the operating table in the supine position. After undergoing general endotracheal anesthesia, the patient's abdomen was then prepped and draped in the usual sterile fashion. Patient was placed in the reverse Trendelenburg position with the legs spread apart and secured in the leg holders. A small incision was made 2/3 of distance between the xyphoid and the umbilicus. The optic port was used and usig an 11 mm port entrance to the abdominal cavity was obtained under direct vision and without injury to the intraabdominal structures. There were no adehesions in the lower part of the abdomen. One 12 mm port was placed in the left upper quadrant. An 11 mm port was placed in the left flank and a 5 mm port was placed in the right upper quadrant. A 5 mm subxyphoid port was placed and the left lateral segment of the liver was retracted superiorly and to kristian right. The lesser curvature of the stomach was severely adhered to the liver. This part of the operation was very tidious since the adhesions were very dense and there was no plane of separation between the stomach and the liver. After meticulous and lengthy dissection the lesser curvature was from the liver. The Abigail fundoplication seemed to be herniated, twisted and partially undone. We continued our dissection very meticulously into the mediastinum and the stomach from the right fady and the left fady. This part of the operation was very tedious due to severe adhesions between the herniated stomach and the mediastinal structures including the aorta, and was done very carefully without any injury to the stomach. Subsequently, the esophagus was identified. The right and left fady were identified. A [place] was placed around the esophagus and the esophagus was lifted up. Further mobilization of the esophagus was performed. Following full mobilization of the esophagus we had three cm intraabdominal esophageal length. We took down the remanant of the Abigail funoplication and brought the posterior wall of the stomach to the left side, to its normal anatomic position. The short gastric vessels were divided during the first operation. There were severe adhesion at the level of the posterior wall of the stomach which was adhered to the right fady and the liver, which were divided. There was an inflammatory tissue which seemed as a piece of mesh, adhered to the posterior wall of the stomach therefore, a wedge excision of the posterior wall of the stomach at the level of the fundus was performed and was sent to permanent pathology. An upper endoscopy was then performed which showed no evidence of esophageal or gastric leak. We were able to insufflate the stomach. Subsequently three interrupted figure of eight 0-Ethibond stitches were placed to close the crural opening. A stitch was then placed 6 cm from the gastroesophageal junction in the posterior wall of the stomach and this stitch was then brought up behind the esophagus to the right side. A Toupet fundoplication was performed by placing three 2-0 interrupted silk stitches between the stomach and the esophagus on each side to construct a 270 degree Toupet fundoplication, using a Tie-know device. An upper endoscopy was perfomed and showed no evidence of perforation. There was easy access into the stomach. Retroflexed view of the stomach showed a well formed Toupet fundoplication. Subsequently, a 4 x 5-cm piece of tailorel Acell mesh was placed over the crural closure and the tacking device was used to keep the mesh in place. Hemostasis was assessed and there was no evidence of bleeding. The cynthia was removed. All ports were removed under direct vision and the skin was closed with subcuticular stitches. The patient tolerated the procedure well and was extubated and transferred to the postanesthesia recovery room without any complications. I was scrubbed and present for the entire procedure. 06/13/2015 [facility] Plan of Care No Data Provided for This Section Social History Social History Date Source Social History TypeResponse Alcohol Current, Type Beer, Wine, Liquor. Frequency: 1-2 times per month. Previous treatment: None. Smoking Status Never smoker; Exposure to Tobacco Smoke None; Cigarette Smoking Last 365 Days No; Reg Smoking Cessation Counseling No entered on: 09/29/16 06/07/2015 [facility] Social History TypeResponse Alcohol Current, Type Beer, Wine, Liquor. Frequency: 1-2 times per month. Previous treatment: None. Smoking Status Never smoker; Exposure to Tobacco Smoke None; Cigarette Smoking Last 365 Days No; Reg Smoking Cessation Counseling No entered on: 06/26/18 06/07/2015 [facility] No data available for this section 05/29/2015 [facility] Family History No Data Provided for This Section Advance Directives No Data Provided for This Section Functional Status No Data Provided for This Section
--- OUTSIDE RECORDS SUMMARY | 2019-04-14 14:06 | XMS REPORT | Summary of Care ---
Author Author [facility] Organization [facility] Address Unknown Phone Unavailable Encounter NIC Frederick(YAZAN) [id number] Date(s): 06/07/15 - 06/07/15 [facility] [address] [place] [address]- Discharge Disposition: Home Attending Physician: Kalyani Montoya MD Referring Physician: Kalyani Montoya MD Vital Signs 1 2 3 Most recent to oldest [Reference Range]: 157.48 cm (06/07/15 8:25 AM) Height 103/75 mmHg (06/07/15 12:00 PM) 111/85 mmHg (06/07/15 11:45 AM) 107/80 mmHg (06/07/15 11:30 AM) Blood Pressure [90-140/60-90 mmHg] 15 BRMIN (06/07/15 12:00 PM) 21 BRMIN *HI* (06/07/15 11:45 AM) 13 BRMIN *LOW* (06/07/15 11:30 AM) Respiratory Rate [14-20 BRMIN] 68 bpm (06/07/15 9:15 AM) Peripheral Pulse Rate [60-100 bpm] 68.324 kg (06/07/15 8:25 AM) Weight 27.55 m2 (06/07/15 8:25 AM) Body Mass Index Problem List Condition Effective Dates Status Health Status Informant Acid Active reflux(Confirmed) Hyperlipidemia(Confi Active rmed) Allergies, Adverse Reactions, Alerts Substance Reaction Severity Status codeine Active penicillins Codeine Phosphate,Miscellaneous Active Routes,compounding Singulair Active Medications Amethia Lo oral tablet 1 tab, PO, Daily, 0 Refill(s) Start Date: 06/07/15 Status: Ordered levothyroxine 25 mcg (0.025 mg) oral tablet 25 microgram=1 tab, PO, Daily, # 30 tab, 0 Refill(s) Start Date: 06/07/15 Status: Ordered Livalo 4 mg oral tablet 4 mg=1 tab, PO, Daily, # 30 tab, 1 Refill(s) Start Date: 06/07/15 Status: Ordered NexIUM 40 mg oral delayed release capsule 40 mg=1 cap, PO, Daily, # 30 cap, 0 Refill(s) Start Date: 06/07/15 Status: Ordered ZyrTEC 10 mg oral tablet 10 mg=1 tab, PO, Daily, # 30 tab, 0 Refill(s) Start Date: 06/07/15 Stop Date: 07/07/15 Status: Ordered Results No data available for this section Immunizations No data available for this section Procedures Procedure Date Related Diagnosis Body Site Appendectomy1 Cholecystectomy Excisional biopsy of breast mass2 Fundoplication3 Operation4 [id number] Social History Social History Type Response Alcohol Current, Type Beer, Wine, Liquor. Frequency: 1-2 times per month. Previous treatment: None. Smoking Status Never smoker; Exposure to Tobacco Smoke None; Cigarette Smoking Last 365 Days No; Reg Smoking Cessation Counseling No Assessment and Plan No data available for this section
--- OUTSIDE RECORDS SUMMARY | 2019-04-14 14:06 | XMS REPORT | Summary of Care ---
Author Author [facility] Organization [facility] Address Unknown Phone Unavailable Encounter HQ Cristalntr_laury(FIN) [id number] Date(s): 05/30/15 - 05/30/15 [facility] [address] [place] [address]- [phone] Final: Abdominal distension (gaseous) Final: Early satiety Discharge Disposition: Home Attending Physician: Kalyani Montoya [...]
--- OUTSIDE RECORDS SUMMARY | 2019-04-14 14:06 | XMS REPORT | Summary of Care ---
Author Author [facility] Organization [facility] Address Unknown Phone Unavailable Encounter NIC Frederick(YAZAN) [id number] Date(s): 06/11/15 - 06/13/15 [facility] [address] [place] [address]- Discharge Disposition: Home Attending Physician: Moy Martinez DO Admitting Physician: Moy Martinez DO Referring Physician: Kalyani Montoya MD Vital Signs 1 2 3 Most recent to oldest [Reference Range]: 157.48 cm (06/07/15 7:03 AM) Height 98.3 DegF (06/13/15 7:59 AM) 98.5 DegF (06/13/15 4:00 AM) 98.9 DegF (06/13/15 12:00 AM) Temperature Oral [96.4-99.1 DegF] 133/90 mmHg (06/13/15 7:59 AM) 130/80 mmHg (06/13/15 4:00 AM) 124/77 mmHg (06/13/15 12:00 AM) Blood Pressure [90-140/60-90 mmHg] 16 BRMIN (06/13/15 7:59 AM) 18 BRMIN (06/13/15 7:38 AM) 18 BRMIN (06/13/15 4:00 AM) Respiratory Rate [14-20 BRMIN] 84 bpm (06/13/15 7:59 AM) 94 bpm (06/13/15 4:00 AM) 98 bpm (06/13/15 12:00 AM) Peripheral Pulse Rate [60-100 bpm] 68.324 kg (06/07/15 7:03 AM) Weight 27.55 m2 (06/07/15 7:03 AM) Body Mass Index Problem List Condition Effective Dates Status Health Status Informant Acid Active reflux(Confirmed) Hyperlipidemia(Confi Active rmed) Allergies, Adverse Reactions, Alerts Substance Reaction Severity Status codeine Active penicillins Codeine Phosphate,Miscellaneous Active Routes,compounding Singulair Active Medications acetaminophen 650 mg, 2 tab, Route: PO, Drug form: TAB, Q4H, Dosing Weight 68.324, kg, PRN [place] n 1-3/Temp > 100.4 F, Start date: 06/11/15 19:22:00, Duration: 30 day, Stop date: 07/11/15 19:21:00 Notes: Do not exceed 4 gm/day. (Same as: Tylenol) Start Date: 06/11/15 Stop Date: 06/13/15 Status: Discontinued acetaminophen-hydrocodone 300 mg-10 mg/15 mL oral liquid 7.5 mL, Route: PO, Drug Form: SOLN, Dosing Weight 68.324, kg, Q6H, PRN Pain Scor e 4-6, Start date: 06/11/15 17:25:00, Duration: 30 day, Stop date: 07/11/15 17:2 4:00 Notes: Do not exceed 4gm/day of acetaminophen. (Same as: Zolvit) Start Date: 06/11/15 Stop Date: 06/13/15 Status: Discontinued albuterol 0.083% inhalation solution 0.5 mg, 0.6 mL, Route: INHALATION, Drug form: SOLN, Q4H, Dosing Weight 68.324, k g, Start date: 06/11/15 20:00:00, Duration: 30 day, Stop date: 07/11/15 16:00:00 Notes: SEE RT DOCUMENTATION (Same as: Proventil) Start Date: 06/11/15 Stop Date: 06/13/15 Status: Discontinued albuterol 0.083% inhalation solution 2.49 mg, 3 mL, Route: NEB, Drug form: SOLN, RQ4H, Dosing Weight 68.324, kg, Star t date: 06/11/15 19:00:00, Duration: 30 day, Stop date: 07/11/15 15:00:00 Notes: SEE RT DOCUMENTATION (Same as: Proventil) Start Date: 06/11/15 Stop Date: 06/13/15 Status: Discontinued heparin 5,000 unit, Route: SUB-Q, ONCE, Dosing Weight 68.324, kg, Start date: 06/11/15 1 1:23:00, Stop date: 06/11/15 11:23:00 Start Date: 06/11/15 Stop Date: 06/11/15 Status: Completed heparin 5,000 unit, 1 mL, Route: SUB-Q, Drug form: INJ, Q12H, Dosing Weight 68.324, kg, Start date: 06/12/15 8:00:00, Duration: 30 day, Stop date: 07/11/15 21:00:00 Notes: porcine heparin Start Date: 06/12/15 Stop Date: 06/13/15 Status: Discontinued ketOROLAC 15 mg, 1 mL, Route: IV, Drug form: INJ, Q6H, Dosing Weight 68.324, kg, Start emeli e: 06/12/15 2:00:00, Duration: 1 day, Stop date: 06/12/15 20:00:00 Notes: (Same as:Toradol) IV bolus must be given >15 seconds. Give IM administration slowly and deeply into the muscle. Not for use > 4 days. Start Date: 06/12/15 Stop Date: 06/12/15 Status: Completed ketOROLAC 15 mg, 1 mL, Route: IV, Drug form: INJ, Q6H, Dosing Weight 68.324, kg, Start emeli e: 06/12/15 0:00:00, Stop date: 06/12/15 3:00:00 Notes: (Same as:Toradol) IV bolus must be given >15 seconds. Give IM administration slowly and deeply into the muscle. Not for use > 4 days. Start Date: 06/12/15 Stop Date: 06/11/15 Status: Canceled ketOROLAC 30 mg, 1 mL, Route: IV, Drug form: INJ, ONCE, Dosing Weight 68.324, kg, Start da te: 06/11/15 20:17:00, Duration: 1 doses or times, Stop date: 06/11/15 20:17:00 Notes: (Same as:Toradol) IV bolus must be given >15 seconds. Give IM administration slowly and deeply into the muscle.Not for use > 4 days MEDICATION WASTE Product Size: 30 mgProduct Wasted: ___ mg Start Date: 06/11/15 Stop Date: 06/11/15 Status: Completed Lactated Ringers Injection IV 1000 mL 1,000 mL, Rate: 25 ml/hr, Infuse over: 40 hr, Route: IV, Dosing Weight 68.324 kg , Total Volume: 1,000, Start date: 06/11/15 11:10:00, Duration: 30 day, Stop emeli e: 07/11/15 11:09:00 Start Date: 06/11/15 Stop Date: 06/11/15 Status: Discontinued Levaquin 500 mg, Route: IVPB, ONCE, Dosing Weight 68.324, kg, Start date: 06/11/15 11:23: 00, Stop date: 06/11/15 11:23:00 Start Date: 06/11/15 Stop Date: 06/11/15 Status: Completed levofloxacin 500 mg, 2 tab, Route: PO, Drug form: TAB, [id number], Dosing Weight 68.324, kg, Sta rt date: 06/11/15 17:00:00, Stop date: 07/10/15 17:00:00 Notes: Do not give w/antacids, dairy pdt & minerals Take 1 hr before or 2 hr after dairy pdt (Same as:Levaquin) Start Date: 06/11/15 Stop Date: 06/13/15 Status: Discontinued levothyroxine 25 microgram, 1 tab, Route: PO, Drug form: TAB, Q630AM, Dosing Weight 68.324, kg , Start date: 06/12/15 6:30:00, Duration: 30 day, Stop date: 07/11/15 6:30:00 Notes: Take 1 hour before or 2 hours after meal; Enteral feeds may interefere wi th the absorption of this medication. (Same as:Levothroid) Start Date: 06/12/15 Stop Date: 06/13/15 Status: Discontinued morphine Sulfate 4 mg, 2 mL, Route: IVP, Drug form: INJ, Q4H, Dosing Weight 68.324, kg, PRN Pain Score 1-5, Start date: 06/11/15 16:36:00, Duration: 30 day, Stop date: 07/11/15 16:35:00 Notes: (Same as:MORPhine Sulfate) Start Date: 06/11/15 Stop Date: 06/12/15 Status: Discontinued Sodium Chloride 0.9% IV 1,000 mL 1,000 mL, Rate: 75 ml/hr, Infuse over: 13.3 hr, Route: IV, Dosing Weight 68.324 kg, Total Volume: 1,000, Start date: 06/11/15 16:36:00, Duration: 30 day, Stop d ate: 07/11/15 16:35:00 Start Date: 06/11/15 Stop Date: 06/12/15 Status: Discontinued Tylenol 650 mg, 20.31 mL, Route: PO, Drug form: LIQ, Q6H, Dosing Weight 68.324, kg, PRN Pain 1-3/Temp > 100.4 F, Start date: 06/11/15 17:25:00, Duration: 30 day, Stop date: 07/11/15 17:24:00 Notes: Max fnsdzqcmgpxuk=7109 mg/day (4 g/day) (Same as: Tylenol) Start Date: 06/11/15 Stop Date: 06/13/15 Status: Discontinued Zofran 4 mg, 2 mL, Route: IVP, Drug form: INJ, Q4H, Dosing Weight 68.324, kg, Start emeli e: 06/11/15 16:00:00, Duration: 30 day, Stop date: 07/11/15 12:00:00 Notes: (Same as: Zofran) MEDICATION WASTE Product Size: 4 mgProduct Was dora: ___ mg Start Date: 06/11/15 Stop Date: 06/13/15 Status: Discontinued ZyrTEC 10 mg, 2 tab, Route: PO, Drug form: TAB, Daily, Dosing Weight 68.324, kg, Start date: 06/12/15 9:00:00, Duration: 30 day, Stop date: 07/11/15 9:00:00 Notes: (Same As: Zyrtec) Start Date: 06/12/15 Stop Date: 06/13/15 Status: Discontinued Results BLOOD BANK RESULTS 1 2 3 Most recent to oldest [Reference Range]: AB POS *Unknown* (06/07/15 7:34 AM) ABO/Rh Negative (06/07/15 7:34 AM) Antibody Scrn Product available (06/07/15 8:30 AM) RBC product ELECTROLYTES 1 2 3 Most recent to oldest [Reference Range]: 139 mEq/L (06/13/15 8:18 AM) 140 mEq/L (06/12/15 5:23 AM) 138 mEq/L (06/11/15 3:03 PM) Sodium Lvl [135-145 mEq/L] 4.2 mEq/L (06/13/15 8:18 AM) 3.8 mEq/L (06/12/15 5:23 AM) 5.0 mEq/L (06/11/15 3:03 PM) Potassium Lvl [3.5-5.1 mEq/L] 104 mEq/L (06/13/15 8:18 AM) 106 mEq/L (06/12/15 5:23 AM) 109 mEq/L (06/11/15 3:03 PM) Chloride Lvl [95-109 mEq/L] 26 mEq/L (06/13/15 8:18 AM) 22 mEq/L *LOW* (06/12/15 5:23 AM) 19 mEq/L *LOW* (06/11/15 3:03 PM) CO2 [24-32 mEq/L] 13.2 mEq/L (06/13/15 8:18 AM) 15.8 mEq/L (06/12/15 5:23 AM) 15.0 mEq/L (06/11/15 3:03 PM) AGAP [10.0-20.0 mEq/L] CHEM PANEL 1 2 3 Most recent to oldest [Reference Range]: 0.8 mg/dL (06/13/15 8:18 AM) 0.9 mg/dL (06/12/15:23 AM) 0.8 mg/dL (06/11/15 3:03 PM) Creatinine Lvl [0.5-1.4 mg/dL] 91 mL/min/1.73m2 1 *NA* (06/13/15 8:18 AM) 79 mL/min/1.73m2 2 *NA* (06/12/15:23 AM) 91 mL/min/1.73m2 3 *NA* (06/11/15 3:03 PM) eGFR 4 mg/dL *LOW* (06/13/15 8:18 AM) 6 mg/dL *LOW* (06/12/15 5:23 AM) 11 mg/dL (06/11/15 3:03 PM) BUN [7-22 mg/dL] 7 (06/12/15 5:23 AM) 14 (06/11/15 3:03 PM) 19 (06/07/15 7:34 AM) B/C Ratio [6-25] 106 mg/dL *HI* (06/13/15 8:18 AM) 117 mg/dL *HI* (06/12/15 5:23 AM) 119 mg/dL *HI* (06/11/15 3:03 PM) Glucose Lvl [70-99 mg/dL] 5.2 g/dL *LOW* (06/12/15 5:23 AM) 5.6 g/dL *LOW* (06/11/15 3:03 PM) 7.5 g/dL (06/07/15 7:34 AM) Total Protein [6.4-8.4 g/dL] 2.7 g/dL *LOW* (06/12/15 5:23 AM) 2.9 g/dL *LOW* (06/11/15 3:03 PM) 3.7 g/dL (06/07/15 7:34 AM) Albumin Lvl [3.5-5.0 g/dL] 2.5 g/dL (06/12/15 5:23 AM) 2.7 g/dL (06/11/15 3:03 PM) 3.8 g/dL (06/07/15 7:34 AM) Globulin [2.0-4.0 g/dL] 1.1 (06/12/15 5:23 AM) 1.1 (06/11/15 3:03 PM) 1.0 (06/07/15 7:34 AM) A/G Ratio [0.7-1.6] 8.5 mg/dL (06/13/15 8:18 AM) 7.9 mg/dL *LOW* (06/12/15 5:23 AM) 8.0 mg/dL *LOW* (06/11/15 3:03 PM) Calcium Lvl [8.5-10.5 mg/dL] 1.3 mg/dL *LOW* (06/11/15 3:03 PM) Magnesium Lvl [1.8-2.4 mg/dL] 260 unit/L *HI* (06/12/15 5:23 AM) 194 unit/L *HI* (06/11/15 3:03 PM) 22 unit/L (06/07/15 7:34 AM) ALT [0-65 unit/L] 158 unit/L *HI* (06/12/15:23 AM) 169 unit/L *HI* (06/11/15 3:03 PM) 8 unit/L (06/07/15 7:34 AM) AST [0-37 unit/L] 45 unit/L (06/12/15:23 AM) 47 unit/L (06/11/15 3:03 PM) 52 unit/L (06/07/15 7:34 AM) Alk Phos [39-136 unit/L] 0.3 mg/dL (06/12/15:23 AM) 0.3 mg/dL (06/11/15 3:03 PM) 0.3 mg/dL (06/07/15 7:34 AM) Bili Total [0.2-1.3 mg/dL] 1Result Comment: The eGFR is calculated using the [...] from the National Kidney Disease Education Program ( NKDEP) which additionally recommends that when the eGFR is used in patients with extremes of body mass index for purposes of drug dosing, the eGFR should be mul tiplied by the estimated BMI. 2Result Comment: The eGFR is calculated using the [...] from the National Kidney Disease Education Program ( NKDEP) which additionally recommends that when the eGFR is used in patients with extremes of body mass index for purposes of drug dosing, the eGFR should be mul tiplied by the estimated BMI. 3Result Comment: The eGFR is calculated using the [...] from the National Kidney Disease Education Program ( NKDEP) which additionally recommends that when the eGFR is used in patients with extremes of body mass index for purposes of drug dosing, the eGFR should be mul tiplied by the estimated BMI. ENDOCRINOLOGY 1 2 3 Most recent to oldest [Reference Range]: Negative *NA* (06/07/15 7:34 AM) S Preg [Negative] URINE CHEM 1 2 3 Most recent to oldest [Reference Range]: Negative (06/11/15 10: AM) U Preg [Negative] URINE AND STOOL 1 2 3 Most recent to oldest [Reference Range]: Clear (06/07/15 7:34 AM) UA Turbidity [Clear] Yellow *NA* (06/07/15 7:34 AM) UA Color [Yellow] 5.0 (06/07/15 7:34 AM) UA pH [5.0-8.0] 1.025 (06/07/15 7:34 AM) UA Spec Grav [<=1.030] Negative (06/07/15 7:34 AM) UA Glucose [Negative] Small *ABN* (06/07/15 7:34 AM) UA Blood [Negative] Negative *NA* (06/07/15 7:34 AM) UA Ketones [Negative] Negative (06/07/15 7:34 AM) UA Protein [Negative] 0.2 EU/dL (06/07/15 7:34 AM) UA Urobilinogen [0.1-1.0 EU/dL] Negative *NA* (06/07/15 7:34 AM) UA Bili [Negative] Negative (06/07/15 7:34 AM) UA Leuk Est [Negative] Negative (06/07/15 7:34 AM) UA Nitrite [Negative] 1 /HPF (06/07/15 7:34 AM) UA WBC [0-5 /HPF] 2 /HPF (06/07/15 7:34 AM) UA RBC [0-2 /HPF] Occasional /HPF *NA* (06/07/15 7:34 AM) UA Bacteria [None Seen /HPF] Occasional /LPF *NA* (06/07/15 7:34 AM) UA Sq Epi [Few /LPF] 1 /LPF (06/07/15 7:34 AM) UA Hyal Cast [0-2 /LPF] Few /LPF *NA* (06/07/15 7:34 AM) UA Mucus [None Seen /LPF] HEMATOLOGY 1 2 3 Most recent to oldest [Reference Range]: 12.4 K/CMM *HI* (06/13/15 8:18 AM) 14.0 K/CMM *HI* (06/12/15 5:23 AM) 22.8 K/CMM *HI* (06/11/15 3:03 PM) WBC [3.7-10.4 K/CMM] 4.32 M/CMM (06/13/15 8:18 AM) 4.10 M/CMM *LOW* (06/12/15 5:23 AM) 4.44 M/CMM (06/11/15 3:03 PM) RBC [4.20-5.40 M/CMM] 12.0 g/dL (06/13/15 8:18 AM) 11.3 g/dL *LOW* (06/12/15 5:23 AM) 12.2 g/dL (06/11/15 3:03 PM) Hgb [12.0-16.0 g/dL] 37.3 % (06/13/15 8:18 AM) 35.3 % *LOW* (06/12/15 5:23 AM) 38.0 % (06/11/15 3:03 PM) Hct [36.0-48.0 %] 86.3 fL (06/13/15 8:18 AM) 86.2 fL (06/12/15 5:23 AM) 85.7 fL (06/11/15 3:03 PM) MCV [80.0-98.0 fL] 27.7 pg (06/13/15 8:18 AM) 27.7 pg (06/12/15 5:23 AM) 27.5 pg (06/11/15 3:03 PM) MCH [27.0-31.0 pg] 32.1 g/dL (06/13/15 8:18 AM) 32.1 g/dL (06/12/15 5:23 AM) 32.1 g/dL (06/11/15 3:03 PM) MCHC [32.0-36.0 g/dL] 13.3 % (06/13/15 8:18 AM) 13.1 % (06/12/15 5:23 AM) 13.6 % (06/11/15 3:03 PM) RDW [11.5-14.5 %] 274 K/CMM (06/13/15 8:18 AM) 259 K/CMM (06/12/15 5:23 AM) 345 K/CMM (06/11/15 3:03 PM) Platelet [133-450 K/CMM] 8.9 fL (06/13/15 8:18 AM) 9.0 fL (06/12/15 5:23 AM) 8.8 fL (06/11/15 3:03 PM) MPV [7.4-10.4 fL] 79.2 % *HI* (06/13/15 8:18 AM) 86.3 % *HI* (06/11/15 3:03 PM) 71.3 % (06/07/15 7:34 AM) Segs [45.0-75.0 %] 11.7 % *LOW* (06/13/15 8:18 AM) 8.4 % *LOW* (06/11/15 3:03 PM) 21.5 % (06/07/15 7:34 AM) Lymphocytes [20.0-40.0 %] 7.0 % (06/13/15 8:18 AM) 4.6 % (06/11/15 3:03 PM) 5.4 % (06/07/15 7:34 AM) Monocytes [2.0-12.0 %] 1.2 % (06/13/15 8:18 AM) 0.1 % (06/11/15 3:03 PM) 1.5 % (06/07/15 7:34 AM) Eosinophils [0.0-4.0 %] 0.9 % (06/13/15 8:18 AM) 0.6 % (06/11/15 3:03 PM) 0.3 % (06/07/15 7:34 AM) Basophils [0.0-1.0 %] 9.9 K/CMM *HI* (06/13/15 8:18 AM) 19.7 K/CMM *HI* (06/11/15 3:03 PM) 6.2 K/CMM (06/07/15 7:34 AM) Segs-Bands # [1.5-8.1 K/CMM] 1.5 K/CMM (06/13/15 8:18 AM) 1.9 K/CMM (06/11/15 3:03 PM) 1.9 K/CMM (06/07/15 7:34 AM) Lymphocytes # [1.0-5.5 K/CMM] 0.9 K/CMM *HI* (06/13/15 8:18 AM) 1.0 K/CMM *HI* (06/11/15 3:03 PM) 0.5 K/CMM (06/07/15 7:34 AM) Monocytes # [0.0-0.8 K/CMM] 0.1 K/CMM (06/13/15 8:18 AM) 0.1 K/CMM (06/07/15 7:34 AM) Eosinophils # [0.0-0.5 K/CMM] 0.1 K/CMM (06/13/15 8:18 AM) 0.1 K/CMM (06/11/15 3:03 PM) Basophils # [0.0-0.2 K/CMM] 12.6 seconds (06/07/15 7:34 AM) PT [12.0-14.7 seconds] 0.91 (06/07/15 7:34 AM) INR [0.85-1.17] 28.7 seconds (06/07/15 7:34 AM) PTT [22.9-35.8 seconds] Immunizations No data available for this section Procedures Procedure Date Related Diagnosis Body Site Appendectomy1 Cholecystectomy Excisional biopsy of breast mass2 Fundoplication3 Operation4 [id number] Social History Social History Type Response Alcohol Current, Type Beer, Wine, Liquor. Frequency: 1-2 times per month. Previous treatment: None. Smoking Status Never smoker; Exposure to Tobacco Smoke None; Cigarette Smoking Last 365 Days No; Reg Smoking Cessation Counseling No Assessment and Plan Extracted from: Title: Clinical Document Author: Moy Martinez DO Date: 06/13/15 Progress Daily [facility] Completed: May, 10:53 by Moy Martinez DO RM: 338 - 1P, SE [id number] DELGADILLO [id number] (: 1970) F Attending: Moy Martinez DOPhone: Service: Internal Medicine Reason for Admission: K21.9, K44.9 Working DRG: None Documented Code status: None Specified=FULL CODECurrent diet: Isolation: None Documented Allergies: Singulair, codeine, penicillins(Codeine Phosphate,Miscellaneous Routes,compounding) SUBJECTIVE Patient seen and examined. Events noted overnight. Labs/Images reviewed improving, less pain, ambulating lots more OBJECTIVE Labs (Last four charted values) WBC H 12.4(JUN 13)H 14.0(JUN 12)H 22.8(JUN 11)8.8(JUN 07) Hgb 12.0(JUN 13)L 11.3(JUN 12)12.2(JUN 11)14.1(JUN 07) Hct 37.3(JUN 13)L 35.3(JUN 12)38.0(JUN 11)43.9(JUN 07) Plt 274(JUN 13)259(JUN 12)345(JUN 11)338(JUN 07) Na 139(JUN 13)140(JUN 12)138(JUN 11)139(JUN 07) K 4.2(JUN 13)3.8(JUN 12)5.0(JUN 11)3.7(JUN 07) CO2 26(JUN 13)L 22(JUN 12)L 19(JUN 11)L 23(JUN 07) Cl 104(JUN 13)106(JUN 12)109(JUN 11)106(JUN 07) Cr 0.8(JUN 13)0.9(JUN 12)0.8(JUN 11)1.0(JUN 07) BUN L 4(JUN 13)L 6(JUN 12)11(JUN 11)19(JUN 07) Glucose Random H 106(JUN 13)H 117(JUN 12)H 119(JUN 11)83(JUN 07) Mg L 1.3(JUN 11) Ca 8.5(JUN 13)L 7.9(JUN 12)L 8.0(JUN 11)8.9(JUN 07) PT 12.6(JUN 07) INR 0.91(JUN 07) PTT 28.7(JUN 07) ASSESSMENT & EXAM Gen: NAD, Alert, Awake HEENT: NC/AT, PERRLA, oral area clear and moist Neck: No LAD, No JVD, trachea midline Chest: CTAB, no c/w/r CV: RRR, S1, S2 GI: +BS, S mild distention, No organomegaly Ext: no c/c/e Neuro: AOx3, no gross deficits noted Skin: No notable rashes PLAN & TREATMENT ambulating toleratign diet d/w pt about post op instructions - no heavy lifting d/w to hold statin for 2 weeks post op before resuming ok to d/c home today when cleared by surgery DIAGNOSES & PROBLEMS 1. Abigail fundoplication, status post reduction with hiatal hernia repair. 2. Transaminitis secondary to surgery. 3. Hypothyroidism. Ready for Discharge (Yes/No)? Benton still necessary (Yes/No): Line still necessary (Yes/No): 24hr Labs 06/13 0818 Glucose Eye015 H BUN4 L Creatinine Lvl0.8 Sodium Xii062 Potassium Lvl4.2 Chloride Cci370 CO226 AGAP13.2 Calcium Lvl8.5 eGFR91 WBC12.4 H RBC4.32 Hgb12.0 Hct37.3 MCV86.3 MCH27.7 MCHC32.1 RDW13.3 Wggydwpo777 MPV8.9 Segs79.2 H Monocytes7.0 Dwebjabwxbl70.7 L Eosinophils1.2 Basophils0.9 Segs-Bands #9.9 H Lymphocytes #1.5 Monocytes #0.9 H Eosinophils #0.1 Basophils #0.1 VitalsTmp(F)[id number] 06/13 07:5998.003710/097127--- 06/13 07:38 1895 21% 06/13 04:0098.624509/[id number]--- 06/13 00:0098.067333/430719--- 06/12 20:[id number]--- 24 Hr Tmax: 98.9F (37.17c) at 06/13 00:00Vital Signs are the last 5 in the past 48 hours. DateWt(kg)Wt(lb)Ht(cm)Ht(in)Method 06/07 (initial) 68.32 150.31Measured 57.48 62.00Stated I&ORecordInOutBal 05/2824hr Tot 12 0 12 05/2724hr Tot 32 0 32 Medications (10) Active Scheduled Meds (7): 06/11/15 albuterol (albuterol 0.083% inhalation solution) 2.49 mg NEB RQ4H 06/11/15 albuterol (albuterol 0.083% inhalation solution) 0.5 mg INHALATION Q4H 06/12/15 cetirizine (ZyrTEC) 10 mg PO Daily 06/12/15 heparin 5,000 unit SUB-Q Q12H 06/11/15 levofloxacin 500 mg PO [id number] 06/12/15 levothyroxine 25 microgram PO Q630AM 06/11/15 ondansetron (Zofran) 4 mg IVP Q4H Unscheduled Meds: None PRN Meds (3): 06/11/15 acetaminophen-hydrocodone (acetaminophen-hydrocodone 300 mg-10 mg/15 mL oral liquid) 7.5 mL PO Q6H 06/11/15 acetaminophen (Tylenol) 650 mg PO Q6H 06/11/15 acetaminophen 650 mg PO Q4H One Time Meds: None Continuous Infusions: None Extracted from: Title: Clinical Document Author: Kalyani Montoya MD Date: 06/11/15 PATIENT NAME: TEJA MÉNDEZ DATE OF OPERATION/PROCEDURE: 06/11/2015 PREPROCEDURE DIAGNOSES: 1. S/P Laparoscopic Abigail fundoplication in 2009 2. Twisted, herniated and partially undone Baigail fundoplication 2. Recurrent Hiatal hernia with paraesophageal [...] assess the fundoplication and presence of leak HOUSE CARPENTER HELPER: Jazmin Castillo SURGEON: Kalyani Montoya. INDICATIONS FOR THE [...] right and left fady were identified. A [place] was placed around the esophagus and the [...]
--- OUTSIDE RECORDS SUMMARY | 2019-04-14 14:06 | XMS REPORT | Summary of Care ---
Author Author [facility] Address Unknown Phone Unavailable Encounter NIC Frederick(FIN) [id number] Date(s): 06/26/18 - 06/26/18 [facility]. [address] [place] [address]- [phone] Discharge Disposition: Home or Self Care Attending Physician: Damaris Cote MD Vital Signs Most recent to 1 oldest [Reference Range]: Height 160.02 cm (06/26/18 7:29 PM) Temperature Oral 97.6 DegF [96.4-99.1 DegF] (06/26/18 7:29 PM) Blood Pressure 115/75 mmHg [90-140/60-90 mmHg] (06/26/18 7:29 PM) Peripheral Pulse 86 bpm Rate [60-100 bpm] (06/26/18 7:29 PM) Weight 68.75 kg (06/26/18 7:29 PM) Body Mass Index 26.85 m2 (06/26/18 7:29 PM) Problem List Condition Effective Dates Status Health Status Informant Acid Active reflux(Confirmed) Hyperlipidemia(Confi Active rmed) Nephrolithiasis(Conf Active irmed) Allergies, Adverse Reactions, Alerts Substance Reaction Severity Status penicillins Codeine Phosphate,Miscellaneous Active Routes,compounding codeine Active Singulair Active Medications Flomax 0.4 mg oral capsule 0.4 mg=1 cap, PO, Daily, # 30 cap, 0 Refill(s), Pharmacy: [facility] 0 [id number] Start Date: 06/26/18 Status: Ordered ketOROLAC 10 mg oral tablet 10 mg=1 tab, PO, Q6H, X 5 day, # 20 tab, 0 Refill(s), Pharmacy[facility] [id number] Start Date: 06/26/18 Stop Date: 07/01/18 Status: Completed Zofran ODT 4 mg oral tablet, disintegrating 4 mg=1 tab, PO, TID, Dissolve tab under tongue, # 3 tab, 0 Refill(s), Pharmacy: [id number] Start Date: 06/26/18 Stop Date: 06/27/18 Status: Ordered Results Most recent to 1 oldest [Reference Range]: POC UA Bili Negative [Negative] *NA* (06/26/18 7:39 PM) POC UA Bld Moderate [Negative] *ABN* (06/26/18 7:39 PM) POC UA Color Yellow [Yellow] *NA* (06/26/18 7:39 PM) POC UA Glu [Negative Negative mg/dL mg/dL] *NA* (06/26/18 7:39 PM) POC UA Ket [Negative Negative mg/dL mg/dL] *NA* (06/26/18 7:39 PM) POC UA LeukEst Negative [Negative] *NA* (06/26/18 7:39 PM) POC UA Nit Negative [Negative] *NA* (06/26/18 7:39 PM) POC UA pH [5.0-8.0] 5.0 (06/26/18 7:39 PM) POC UA Prot Negative mg/dL [Negative mg/dL] *NA* (06/26/18 7:39 PM) POC UA SG [<=1.030] >=1.030 *ABN* (06/26/18 7:39 PM) POC UA Turbidity Clear [Clear] *NA* (06/26/18 7:39 PM) POC UA Uro [0.1-1.0 0.2 EU/dL EU/dL] (06/26/18 7:39 PM) Immunizations No data available for this section Procedures Procedure Date Related Diagnosis Body Site Status Appendectomy1 Completed Cervical ablation Completed Cholecystectomy Completed Excisional biopsy of breast mass2 Completed Fundoplication3 Completed Operation4 Completed [id number] Social History Social History Type Response Alcohol Current, Type Beer, Wine, Liquor. Frequency: 1-2 times per month. Previous treatment: None. Smoking Status Never smoker; Exposure to Tobacco Smoke None; Cigarette Smoking Last 365 Days No; Reg Smoking Cessation Counseling No entered on: 06/26/18 Assessment and Plan No data available for this section
--- OUTSIDE RECORDS SUMMARY | 2019-04-14 14:06 | XMS REPORT | Summary of Care ---
Author Author [facility] Organization [facility] Address Unknown Phone Unavailable Encounter NIC Frederick(YAZAN) [id number] Date(s): 06/07/15 - 06/07/15 [facility] [address] [place] [address]- Discharge Disposition: Home Attending Physician: Kalyani Montoya [...] Excisional biopsy of breast mass2 Fundoplication3 Operation4 [id number] Social History Social History Type Response Alcohol Current, Type Beer, Wine, Liquor. Frequency: 1-2 times per month. Previous treatment: None. Smoking Status Never smoker; Exposure to Tobacco Smoke None; Cigarette Smoking Last 365 Days No; Reg Smoking Cessation Counseling No Assessment and Plan No data available for this section
--- OUTSIDE RECORDS SUMMARY | 2019-04-14 14:06 | XMS REPORT | Summary of Care ---
Author Author [facility] Organization [facility] Address Unknown Phone Unavailable Encounter NIC Frederick(YAZAN) [id number] Date(s): 06/07/16 - 06/07/16 [facility] [address] [place] [address]- Discharge Disposition: Home or Self Care Attending Physician: Leydi Ledbetter MD Referring Physician: Leydi Ledbetter MD Vital Signs No data available for [...] Excisional biopsy of breast mass2 Fundoplication3 Operation4 [id number] Social History Social History Type Response Alcohol Current, Type Beer, Wine, Liquor. Frequency: 1-2 times per month. Previous treatment: None. Smoking Status Never smoker; Exposure to Tobacco Smoke None; Cigarette Smoking Last 365 Days No; Reg Smoking Cessation Counseling No Assessment and Plan No data available for this section
--- OUTSIDE RECORDS SUMMARY | 2019-04-14 14:06 | XMS REPORT | Summary of Care ---
Author Author [facility] Organization [facility] Address Unknown Phone Unavailable Encounter [facility] Cristalntr_laury(FIN) [id number] Date(s): 05/17/15 - 05/17/15 [facility] [address] [place] [address]- Discharge Disposition: Home Attending Physician: Kalyani Montoya MD Admitting Physician: Kalyani Monotya MD Referring Physician: Kalyani Montoya MD Vital [...]
[2019-04-14 14:51] LABS: BASOPHILS % 0.4 % (0.0-1.0); EOSINOPHILS # (AUTO) 0.2 (0.0-0.4); EOSINOPHILS % 1.6 % (0.0-6.0); HEMATOCRIT 42.1 % (34.2-44.1); HEMOGLOBIN 14.4 g/dL (12.0-16.0); LYMPHOCYTES # (AUTO) 2.2 (1.0-3.2); LYMPHOCYTES % 21.7 % (18.0-39.1); MEAN CORPUSCULAR HEMOGLOBIN 29.9 pg (28-32); MEAN CORPUSCULAR HGB CONC 34.2 g/dL (31-35); MEAN CORPUSCULAR VOLUME 87.5 fL (81-99); MONOCYTES # (AUTO) 0.7 (0.2-0.8); MONOCYTES % 6.7 % (4.4-11.3); NEUTROPHILS % 69.2 % (38.7-80.0); PLATELET COUNT 354 x10e3/uL (140-360); RED BLOOD COUNT 4.81 x10e6/uL (3.6-5.1); RED CELL DISTRIBUTION WIDTH 12.5 % (11.7-14.4)
[2019-04-14 14:54] LABS: BILIRUBIN,URINE NEGATIVE (NEGATIVE); CLARITY,URINE CLEAR (CLEAR); COLOR,URINE YELLOW (YELLOW); KETONES,URINE NEGATIVE (NEGATIVE); LEUKOCYTE ESTERASE ,URINE NEGATIVE (NEGATIVE); NITRITE,URINE NEGATIVE (NEGATIVE); PROTEIN,URINE DIPSTICK NEGATIVE (NEGATIVE); URINE UROBILINOGEN 0.2 mg/dL (0.2 - 1)
[2019-04-14 15:07] LABS: ALANINE AMINOTRANSFERASE 21 IU/L (0-55); ALBUMIN 4.3 g/dL (3.5-5.0); ALBUMIN/GLOBULIN RATIO 1.6 (0.8-2.0); ALKALINE PHOSPHATASE 54 IU/L (40-150); ANION GAP 15.7 mmol/L (8-16); BLOOD UREA NITROGEN 17 mg/dL (7-26); BUN/CREATININE RATIO 18 (6-25); CARBON DIOXIDE 25 mmol/L (22-29); CHLORIDE 103 mmol/L (98-107); CREATINE KINASE 60 IU/L (29-168); CREATININE, SERUM 0.96 mg/dL (0.57-1.11); EST GLOMERULAR FILTRATION RATE > 60 ML/MIN (60-); GLUCOSE 94 mg/dL (74-118); POTASSIUM 3.7 mmol/L (3.5-5.1); SODIUM 140 mmol/L (136-145)
[2019-04-14 15:13] LABS: BACTERIA,URINE MODERATE /HPF; EPITHELIAL CELLS,URINE FEW /LPF; RBC,URINE 0-5 /HPF (0-5)
[2019-04-14] MEDS ORDERED: ASPIRIN 81 MG CHEW TAB PO ONE (15:20)
[2019-04-14] MEDS ORDERED: ENOXAPARIN SODIUM INJ 100 MG/ML SYR SC STA (15:20)
[2019-04-14] MEDS ORDERED: ONDANSETRON HCL INJ 2MG/ML 2ML 2 MG/ML VIAL IV PRN (15:30)
[2019-04-14] MEDS ORDERED: ENOXAPARIN SODIUM INJ 100 MG/ML SYR SC SCH (15:30)
[2019-04-14] MEDS ORDERED: ENOXAPARIN SOD INJ 60 MG/0.6 ML SYR SC ONE (15:30)
[2019-04-14] MEDS: METOPROLOL TARTRATE 25 MG TAB PO SCH (15:30)
[2019-04-14] MEDS ORDERED: SODIUM CHLORIDE FLUSH 10 ML SYR INJ PRN (15:30)
[2019-04-14] MEDS ORDERED: MORPHINE SULFATE 2 MG/ML SYR 1ML IV PRN (15:30)
[2019-04-14] MEDS: FAMOTIDINE 20 MG/2 ML VIAL IV SCH (15:30)
--- NOTE | 2019-04-14 15:37 | Diagnostic Imaging Report ---
Exam: Chest radiograph Clinical History: Left arm numbness Findings: The cardiomediastinal silhouette and lungs are normal. The regional skeleton and soft tissue are unremarkable. There is no evidence of pleural effusion or pneumothorax. Impression: No radiographic evidence of acute cardiopulmonary disease. Signed by: Dr. Bruce Dugan MD on 04/14/2019 3:34 PM
[2019-04-14] MEDS ORDERED: ENOXAPARIN SOD INJ 60 MG/0.6 ML SYR SC SCH (15:45)
--- NOTE | 2019-04-14 16:08 | Diagnostic Imaging Report ---
Examination: CT head without contrast Clinical Indication: Vertigo. Numbness. Technique: Transaxial noncontrast images from the skull base through the vertex were obtained. Sagittal and coronal reformatted images were done. Dose modulation, iterative reconstruction, and/or weight based adjustment of the mA/kV was utilized to reduce the radiation dose to as low as reasonably achievable. Comparison: None. Findings: Scalp: No abnormalities. Bones: Intact. No fractures. No blastic or lytic lesions. Brain sulci: Appropriate for patient's age. Ventricles: Normal in size and configuration. No hydrocephalus. Extra-axial space: No abnormalities. Parenchyma: No abnormal densities. No masses, hemorrhage, or acute or chronic cortical based vascular insults. Suprasellar region: No abnormalities. Craniocervical junction: The foramen magnum is patent. No Chiari one malformation. Incidental findings: Prior bilateral antrectomies. Impression: No intracranial abnormality. Signed by: Dr. Mckenna Ontiveros M.D. on 04/14/2019 4:05 PM
--- OUTSIDE RECORDS SUMMARY | 2019-04-14 17:18 | XMS REPORT | Clinical Summary ---
Author Author [facility] Address Unknown Phone Unavailable Care Team Providers Care Accounting Instructor Name Role Phone Parveen Moulton MD PCP [...] Comments Vital Sign 120/87 10/01/2018 8:13 AM [facility] Blood Pressure 75 10/01/2018 8:13 AM [facility] Pulse - - Temperature - - Respiratory Rate - - Oxygen Saturation - - Inhaled Oxygen Concentration 68.1 kg (150 lb 3.2 oz) 10/01/2018 8:13 AM [facility] Weight 160 cm (5' 3") 10/01/2018 8:13 AM [facility] Height 26.61 10/01/2018 8:13 AM [facility] Body Mass Index Plan of Treatment Health Maintenance Due Date Last Done Comments CERVICAL CANCER SCREENING 02/16/1993 INFLUENZA VACCINE 03/17/2019 Results Not on fileafter 04/13/2018 Insurance Type Payer Benefit Subscriber ID Effective Phone Address Plan / Dates Group PPO AETNA AETNA PPO xxxxxxxxxx [id number] OPEN resent CHOICE Advance Directives For more information, please contact: [phone] 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
--- OUTSIDE RECORDS SUMMARY | 2019-04-14 17:18 | XMS REPORT | Continuity of Care Document ---
Author Author [place] Address Unknown Phone Unavailable Care Team Providers Care Registered Nurse Cardiac Telemetry Name Role Phone SCYNEXIS Information [facility] Unavailable Unavailable Problems Problem Status Onset Date Classification Date Reported Comments Source K21.9 Active 01/08/2018 [facility] Z12.31 Active 06/04/2016 [facility] Z12.13 - ENCNTR SCREEN FOR MALIGNANT NE Active 03/07/2016 [facility] K21.9, K44.9 Active 06/05/2015 [facility] UNK Active 06/05/2015 [facility] BLOATING; EARLY SATIETY Active 05/24/2015 [facility] GERD//ICD K21.9 Active 05/15/2015 [facility] Final: Abdominal distension (gaseous) 06/02/2015 [facility] Final: Early satiety 06/02/2015 [facility] Gastroesophageal reflux disease (disorder) [facility] (disorder) Active Problem 01/14/2019 [facility] Kidney stone (disorder) Active Problem 01/14/2019 [facility] GASTRO-ESOPHAGEAL REFLUX DISEASE WITHOUT Active [facility] DIAPHRAGMATIC HERNIA WITHOUT OBSTRUCTION Active [facility] Medications Medication Details Route Status Patient Instructions Ordering Provider Order Date Source Ketorolac Tromethamine 10 MG Oral Tablet 10 mg=1 tab, PO, Q6H, X 5 day, # 20 tab, 0 Refill(s), Pharmacy: [facility] [id number] No Longer Active 06/27/2018 [facility] Ondansetron 4 MG Disintegrating Tablet [Zofran] 4 mg=1 tab, PO, TID, Dissolve tab under tongue, # 3 tab, 0 Refill(s), Pharmacy: [facility] [id number] Active 06/27/2018 [facility] Tamsulosin hydrochloride 0.4 MG Oral Capsule [Flomax] 0.4 mg=1 cap, PO, Daily, # 30 cap, 0 Refill(s), Pharmacy: [facility] [id number] Active 06/27/2018 [facility] Zyrtec 10 mg, 2 tab, Route: PO, Drug form: TAB, Daily, Dosing Weight 68.324, kg, Start date: 06/12/15 9:00:00, Duration: 30 day, Stop date: 07/11/15 9:00:00Notes: (Same As: Zyrtec) No Longer Active 06/12/2015 [facility] heparin 5,000 unit, 1 mL, Route: SUB-Q, Drug form: INJ, Q12H, Dosing Weight 68.324, kg, Start date: 06/12/15 8:00:00, Duration: 30 day, Stop date: 07/11/15 21:00:00Notes: porcine heparin No Longer Active 06/12/2015 [facility] Thyroxine 25 microgram, 1 tab, Route: PO, Drug form: TAB, Q630AM, Dosing Weight 68.324, kg, Start date: 06/12/15 6:30:00, Duration: 30 day, Stop date: 07/11/15 6:30:00Notes: Take 1 hour before or 2 hours after meal; Enteral feeds may interefere with the absorption of this medication. (Same as:Levothroid) No Longer Active 06/12/2015 [facility] Ketorolac 15 mg, 1 mL, Route: IV, Drug form: INJ, Q6H, Dosing Weight 68.324, kg, Start date: 06/12/15 2:00:00, Duration: 1 day, Stop date: 06/12/15 20:00:00Notes: (Same as:Toradol) IV bolus must be given >15 seconds. Give IM administration slowly and deeply into the muscle. Not for use > 4 days. Inactive 06/12/2015 [facility] Ketorolac 15 mg, 1 mL, Route: IV, Drug form: INJ, Q6H, Dosing Weight 68.324, kg, Start date: 06/12/15 0:00:00, Stop date: 06/12/15 3:00:00Notes: (Same as:Toradol) IV bolus must be given >15 seconds. Give IM administration slowly and deeply into the muscle. Not for use > 4 days. No Longer Active 06/12/2015 [facility] Ketorolac 30 mg, 1 mL, Route: IV, [...] mg Product Wasted: ___ mg Inactive 06/12/2015 [facility] Albuterol 0.83 MG/ML Inhalant Solution 0.5 mg, 0.6 mL, Route: INHALATION, Drug form: SOLN, Q4H, Dosing Weight 68.324, kg, Start date: 06/11/15 20:00:00, Duration: 30 day, Stop date: 07/11/15 16:00:00Notes: SEE RT DOCUMENTATION (Same as: Proventil) No Longer Active 06/12/2015 [facility] Acetaminophen 650 mg, 2 tab, Route: PO, Drug form: TAB, Q4H, Dosing Weight 68.324, kg, PRN Pain 1-3/Temp > 100.4 F, Start date: 06/11/15 19:22:00, Duration: 30 day, Stop date: 07/11/15 19:21:00Notes: Do not exceed 4 gm/day. (Same as: Tylenol) No Longer Active 06/12/2015 [facility] Albuterol 0.83 MG/ML Inhalant Solution 2.49 mg, 3 mL, Route: NEB, Drug form: SOLN, RQ4H, Dosing Weight 68.324, kg, Start date: 06/11/15 19:00:00, Duration: 30 day, Stop date: 07/11/15 15:00:00Notes: SEE RT DOCUMENTATION (Same as: Proventil) No Longer Active 06/12/2015 [facility] Acetaminophen 20 MG/ML / Hydrocodone Bitartrate 0.667 MG/ML Oral Solution 7.5 mL, Route: PO, Drug Form: SOLN, Dosing Weight 68.324, kg, Q6H, PRN Pain Score 4-6, Start date: 06/11/15 17:25:00, Duration: 30 day, Stop date: 07/11/15 17:24:00Notes: Do not exceed 4gm/day of acetaminophen. (Same as: Zolvit) No Longer Active 06/11/2015 [facility] Tylenol 650 mg, 20.31 mL, Route: PO, Drug form: LIQ, Q6H, Dosing Weight 68.324, kg, PRN Pain 1-3/Temp > 100.4 F, Start date: 06/11/15 17:25:00, Duration: 30 day, Stop date: 07/11/15 17:24:00Notes: Max van pbngcidsbe=8905 mg/day (4 g/day) (Same as: Tylenol) No Longer Active 06/11/2015 [facility] Levofloxacin 500 mg, 2 tab, Route: PO, Drug form: TAB, [id number], Dosing Weight 68.324, kg, Start date: 06/11/15 17:00:00, Stop date: 07/10/15 17:00:00Notes: Do not give w/antacids, dairy pdt & minerals Take 1 hr before or 2 hr after dairy pdt (Same as:Levaquin) No Longer Active 06/11/2015 [facility] Morphine 4 mg, 2 mL, Route: IVP, Drug form: INJ, Q4H, Dosing Weight 68.324, kg, PRN Pain Score 1-5, Start date: 06/11/15 16:36:00, Duration: 30 day, Stop date: 07/11/15 16:35:00Notes: (Same as:MORPhine Sulfate) No Longer Active 06/11/2015 [facility] Sodium Chloride 0.154 MEQ/ML Injectable Solution 1,000 mL, Rate: 75 ml/hr, Infuse over: 13.3 hr, Route: IV, Dosing Weight 68.324 kg, Total Volume: 1,000, Start date: 06/11/15 16:36:00, Duration: 30 day, Stop date: 07/11/15 16:35:00 No Longer Active 06/11/2015 [facility] Zofran 4 mg, 2 mL, Route: IVP, Drug form: INJ, Q4H, Dosing Weight 68.324, kg, Start date: 06/11/15 16:00:00, Duration: 30 day, Stop date: 07/11/15 12:00:00Notes: (Same as: Zofran) MEDICATION WASTE Product Size: 4 mg Product Wasted: ___ mg No Longer Active 06/11/2015 [facility] heparin 5,000 unit, Route: SUB-Q, ONCE, Dosing Weight 68.324, kg, Start date: 06/11/15 11:23:00, Stop date: 06/11/15 11:23:00 Inactive 06/11/2015 [facility] Levaquin 500 mg, Route: IVPB, ONCE, Dosing Weight 68.324, kg, Start date: 06/11/15 11:23:00, Stop date: 06/11/15 11:23:00 Inactive 06/11/2015 [facility] Calcium Chloride 0.0014 MEQ/ML / Potassium Chloride 0.004 MEQ/ML / Sodium Chloride 0.103 MEQ/ML / Sodium Lactate 0.028 MEQ/ML Injectable Solution 1,000 mL, Rate: 25 ml/hr, Infuse over: 40 hr, Route: IV, Dosing Weight 68.324 kg, Total Volume: 1,000, Start date: 06/11/15 11:10:00, Duration: 30 day, Stop date: 07/11/15 11:09:00 Inactive 06/11/2015 [facility] pitavastatin 4 MG Oral Tablet [Livalo] 4 mg=1 tab, PO, Daily, # 30 tab, 1 Refill(s) Active 06/07/2015 [facility] cetirizine hydrochloride 10 MG Oral Tablet [Zyrtec] 10 mg=1 tab, PO, Daily, # 30 tab, 0 Refill(s) Active 06/07/2015 [facility] {7 (Ethinyl Estradiol 0.01 MG Oral Tablet) / 84 (Ethinyl Estradiol 0.02 MG / Levonorgestrel 0.1 MG Oral Tablet) } Pack [Amethia Lo Day] 1 tab, PO, Daily, 0 Refill(s) Active 06/07/2015 [facility] Esomeprazole 40 MG Enteric Coated Capsule [Nexium] 40 mg=1 cap, PO, Daily, # 30 cap, 0 Refill(s) Active 06/07/2015 [facility] levothyroxine 25 mcg (0.025 mg) oral tablet 25 microgram=1 tab, PO, Daily, # 30 tab, 0 Refill(s) Active 06/07/2015 [facility] Allergies, Adverse Reactions, Alerts Substance Category Reaction Severity Reaction type Status Date Reported Comments Source codeine Assertion Drug allergy Active [facility] penicillins Assertion Codeine Phosphate,Miscellaneous Routes,compounding Drug allergy Active [facility] Singulair Assertion Drug allergy Active [facility] Immunizations No Data Provided for This Section Results Order Name Results Value Reference Range Date Interpretation Comments Source URINE AND STOOL POC UA Uro 0.2 0.1 - 1.0 06/27/2018 [facility] URINE AND STOOL POC UA Turbidity Clear *NA* (06/26/18 7:39 PM) Clear 06/27/2018 [facility] URINE AND STOOL POC UA SG >=1.030 *ABN* (06/26/18 7:39 PM) <=1.030 06/27/2018 [facility] URINE AND STOOL POC UA Color Yellow *NA* (06/26/18 7:39 PM) Yellow 06/27/2018 [facility] URINE AND STOOL POC UA Bili Negative *NA* (06/26/18 7:39 PM) Negative 06/27/2018 [facility] URINE AND STOOL POC UA Glu Negative mg/dL Negative mg/dL 06/27/2018 [facility] URINE AND STOOL POC UA Ket Negative mg/dL Negative mg/dL 06/27/2018 [facility] URINE AND STOOL POC UA Prot Negative mg/dL Negative mg/dL 06/27/2018 [facility] URINE AND STOOL POC UA pH 5.0 5.0 - 8.0 06/27/2018 [facility] URINE AND STOOL POC UA Bld Moderate *ABN* (06/26/18 7:39 PM) Negative 06/27/2018 [facility] URINE AND STOOL POC UA LeukEst Negative *NA* (06/26/18 7:39 PM) Negative 06/27/2018 [facility] URINE AND STOOL POC UA Nit Negative *NA* (06/26/18 7:39 PM) Negative 06/27/2018 [facility] ELECTROLYTES AGAP 13.2 10.0 - 20.0 06/13/2015 [...] should be multiplied by the estimated BMI. [facility] ELECTROLYTES Potassium Lvl 4.2 3.5 - 5.1 06/13/2015 [facility] ELECTROLYTES Glucose Lvl 106 70 - 99 06/13/2015 [facility] ELECTROLYTES Creatinine Lvl 0.8 0.5 - 1.4 06/13/2015 [facility] ELECTROLYTES Chloride Lvl 104 95 - 109 06/13/2015 [facility] ELECTROLYTES Sodium Lvl 139 135 - 145 06/13/2015 [facility] ELECTROLYTES Calcium Lvl 8.5 8.5 - 10.5 06/13/2015 [facility] HEMATOLOGY Eosinophils # 0.1 0.0 - 0.5 06/13/2015 [facility] HEMATOLOGY Monocytes # 0.9 0.0 - 0.8 06/13/2015 [facility] HEMATOLOGY Basophils # 0.1 0.0 - 0.2 06/13/2015 [facility] HEMATOLOGY Lymphocytes 11.7 20.0 - 40.0 06/13/2015 [facility] HEMATOLOGY Segs 79.2 45.0 - 75.0 06/13/2015 [facility] Lymphocytes # 1.5 1.0 - 5.5 06/13/2015 [facility] HEMATOLOGY Segs-Bands # 9.9 1.5 - 8.1 06/13/2015 [facility] HEMATOLOGY Eosinophils 1.2 0.0 - 4.0 06/13/2015 [facility] HEMATOLOGY Monocytes 7.0 2.0 - 12.0 06/13/2015 [facility] HEMATOLOGY Basophils 0.9 0.0 - 1.0 06/13/2015 [facility] HEMATOLOGY MPV 8.9 7.4 - 10.4 06/13/2015 [facility] HEMATOLOGY RDW 13.3 11.5 - 14.5 06/13/2015 [facility] HEMATOLOGY Platelet 274 133 - 450 06/13/2015 [facility] MCH 27.7 27.0 - 31.0 06/13/2015 [facility] HEMATOLOGY MCHC 32.1 32.0 - 36.0 06/13/2015 [facility] HEMATOLOGY Hct 37.3 36.0 - 48.0 06/13/2015 [facility] HEMATOLOGY MCV 86.3 80.0 - 98.0 06/13/2015 [facility] HEMATOLOGY Hgb 12.0 12.0 - 16.0 06/13/2015 [facility] HEMATOLOGY WBC 12.4 3.7 - 10.4 06/13/2015 [facility] HEMATOLOGY RBC 4.32 4.20 - 5.40 06/13/2015 [facility] ELECTROLYTES Chloride Lvl 106 95 - 109 06/12/2015 [facility] ELECTROLYTES Potassium Lvl 3.8 3.5 - 5.1 06/12/2015 [facility] ELECTROLYTES Sodium Lvl 140 135 - 145 06/12/2015 [facility] ELECTROLYTES eGFR 79 06/12/2015 Result Comment: The [...] should be multiplied by the estimated BMI. [facility] ELECTROLYTES Total Protein 5.2 6.4 - 8.4 06/12/2015 [facility] ELECTROLYTES CO2 22 24 - 32 06/12/2015 [facility] ELECTROLYTES Creatinine Lvl 0.9 0.5 - 1.4 06/12/2015 [facility] ELECTROLYTES Glucose Lvl 117 70 - 99 06/12/2015 [facility] ELECTROLYTES Calcium Lvl 7.9 8.5 - 10.5 06/12/2015 [facility] ELECTROLYTES BUN 6 7 - 22 06/12/2015 [facility] ELECTROLYTES Globulin 2.5 2.0 - 4.0 06/12/2015 [facility] ELECTROLYTES A/G Ratio 1.1 0.7 - 1.6 06/12/2015 [facility] ELECTROLYTES B/C Ratio 7 6 - 25 06/12/2015 [facility] ELECTROLYTES AGAP 15.8 10.0 - 20.0 06/12/2015 [facility] ELECTROLYTES Bili Total 0.3 0.2 - 1.3 06/12/2015 [facility] ELECTROLYTES Alk Phos 45 39 - 136 06/12/2015 [facility] ELECTROLYTES AST 158 0 - 37 06/12/2015 [facility] ELECTROLYTES ALT 260 0 - 65 06/12/2015 [facility] ELECTROLYTES Albumin Lvl 2.7 3.5 - 5.0 06/12/2015 [facility] HEMATOLOGY MPV 9.0 7.4 - 10.4 06/12/2015 [facility] HEMATOLOGY RDW 13.1 11.5 - 14.5 06/12/2015 [facility] HEMATOLOGY MCH 27.7 27.0 - 31.0 06/12/2015 [facility] HEMATOLOGY Platelet 259 133 - 450 06/12/2015 [facility] HEMATOLOGY MCHC 32.1 32.0 - 36.0 06/12/2015 [facility] HEMATOLOGY RBC 4.10 4.20 - 5.40 06/12/2015 [facility] HEMATOLOGY WBC 14.0 3.7 - 10.4 06/12/2015 [facility] HEMATOLOGY MCV 86.2 80.0 - 98.0 06/12/2015 [facility] HEMATOLOGY Hgb 11.3 12.0 - 16.0 06/12/2015 [facility] HEMATOLOGY Hct 35.3 36.0 - 48.0 06/12/2015 [facility] CHEM PANEL Magnesium Lvl 1.3 1.8 - 2.4 06/11/2015 [facility] ELECTROLYTES AGAP 15.0 10.0 - 20.0 06/11/2015 [facility] ELECTROLYTES B/C Ratio 14 6 - 25 06/11/2015 [facility] ELECTROLYTES Globulin 2.7 2.0 - 4.0 06/11/2015 [facility] ELECTROLYTES A/G Ratio 1.1 0.7 - 1.6 06/11/2015 [facility] ELECTROLYTES eGFR 91 06/11/2015 Result Comment: The [...] should be multiplied by the estimated BMI. [facility] ELECTROLYTES Bili Total 0.3 0.2 - 1.3 06/11/2015 [facility] ELECTROLYTES ALT 194 0 - 65 06/11/2015 [facility] ELECTROLYTES AST 169 0 - 37 06/11/2015 [facility] ELECTROLYTES Alk Phos 47 39 - 136 06/11/2015 [facility] ELECTROLYTES Calcium Lvl 8.0 8.5 - 10.5 06/11/2015 [facility] ELECTROLYTES Total Protein 5.6 6.4 - 8.4 06/11/2015 [facility] ELECTROLYTES Albumin Lvl 2.9 3.5 - 5.0 06/11/2015 [facility] ELECTROLYTES Creatinine Lvl 0.8 0.5 - 1.4 06/11/2015 [facility] ELECTROLYTES CO2 19 24 - 32 06/11/2015 [facility] ELECTROLYTES Glucose Lvl 119 70 - 99 06/11/2015 [facility] ELECTROLYTES BUN 11 7 - 22 06/11/2015 [facility] ELECTROLYTES Potassium Lvl 5.0 3.5 - 5.1 06/11/2015 [facility] ELECTROLYTES Sodium Lvl 138 135 - 145 06/11/2015 [facility] ELECTROLYTES Chloride Lvl 109 95 - 109 06/11/2015 [facility] HEMATOLOGY WBC 22.8 3.7 - 10.4 06/11/2015 [facility] HEMATOLOGY Hgb 12.2 12.0 - 16.0 06/11/2015 [facility] HEMATOLOGY RBC 4.44 4.20 - 5.40 06/11/2015 [facility] HEMATOLOGY Platelet 345 133 - 450 06/11/2015 [facility] HEMATOLOGY MPV 8.8 7.4 - 10.4 06/11/2015 [facility] MCHC 32.1 32.0 - 36.0 06/11/2015 [facility] HEMATOLOGY RDW 13.6 11.5 - 14.5 06/11/2015 [facility] HEMATOLOGY MCV 85.7 80.0 - 98.0 06/11/2015 [facility] HEMATOLOGY MCH 27.5 27.0 - 31.0 06/11/2015 [facility] HEMATOLOGY Hct 38.0 36.0 - 48.0 06/11/2015 [facility] HEMATOLOGY Monocytes # 1.0 0.0 - 0.8 06/11/2015 [facility] HEMATOLOGY Basophils # 0.1 0.0 - 0.2 06/11/2015 [facility] HEMATOLOGY Segs-Bands # 19.7 1.5 - 8.1 06/11/2015 [facility] HEMATOLOGY Lymphocytes # 1.9 1.0 - 5.5 06/11/2015 [facility] HEMATOLOGY Eosinophils 0.1 0.0 - 4.0 06/11/2015 [facility] HEMATOLOGY Basophils 0.6 0.0 - 1.0 06/11/2015 [facility] HEMATOLOGY Monocytes 4.6 2.0 - 12.0 06/11/2015 [facility] HEMATOLOGY Lymphocytes 8.4 20.0 - 40.0 06/11/2015 [facility] HEMATOLOGY Segs 86.3 45.0 - 75.0 06/11/2015 [facility] URINE CHEM U Preg Negative (06/11/15 10:15 AM) Negative 06/11/2015 [facility] BLOOD BANK RESULTS RBC product Product available (06/07/15 8:30 AM) 06/07/2015 [facility] BLOOD BANK RESULTS Antibody Scrn Negative (06/07/15 7:34 AM) 06/07/2015 [facility] BLOOD BANK RESULTS ABO/Rh AB POS 06/07/2015 [facility] CHEM PANEL Bili Total 0.3 0.2 - 1.3 06/07/2015 [facility] CHEM PANEL Alk Phos 52 39 - 136 06/07/2015 [facility] CHEM PANEL ALT 22 0 - 65 06/07/2015 [facility] CHEM PANEL AST 8 0 - 37 06/07/2015 [facility] CHEM PANEL Albumin Lvl 3.7 3.5 - 5.0 06/07/2015 [facility] CHEM PANEL Total Protein 7.5 6.4 - 8.4 06/07/2015 [facility] CHEM PANEL Globulin 3.8 2.0 - 4.0 06/07/2015 [facility] CHEM PANEL A/G Ratio 1.0 0.7 - 1.6 06/07/2015 [facility] CHEM PANEL B/C Ratio 19 6 - 25 06/07/2015 [facility] ENDOCRINOLOGY S Preg Negative *NA* (06/07/15 7:34 [...] UA Urobilinogen 0.2 0.1 - 1.0 06/07/2015 [facility] URINE AND STOOL UA Nitrite Negative (06/07/15 7:34 AM) Negative 06/07/2015 [facility] URINE AND STOOL UA Protein Negative (06/07/15 7:34 AM) Negative 06/07/2015 [facility] URINE AND STOOL UA Turbidity Clear (06/07/15 7:34 AM) Clear 06/07/2015 [facility] URINE AND STOOL UA pH 5.0 5.0 - 8.0 06/07/2015 [facility] URINE AND STOOL UA Spec Grav 1.025 <=1.030 06/07/2015 [facility] URINE AND STOOL UA Color Yellow *NA* (06/07/15 7:34 AM) Yellow 06/07/2015 [facility] Pathology Reports No Data Provided for This Section Diagnostic Reports Report Value Date Source Barium Swallow w Esophagus Function DX Patient Name: TEJA MÉNDEZ : 1970; Age: 47 years y/o Female MR: [id number] Study: Barium Swallow w Esophagus Function DX [...] of the left lip of the fundoplication. [id number] 01/13/2018 [facility] Digital Mammo Screen Lane [place] w marjorie [...] dated: 05/28/2015 mammogram and 06/11/2009 mammogram - [facility]. The tissue of both [...] screening mammogram is recommended. Mee ozuna/penrad:06/09/2016 08:22:41 Train Dispatcher: Renetta Waters, [facility] This exam was dictated and interpreted by [id number] for [facility] Breast [place]. letter sent: Normal exam Mammogram BI-RADS: 2 Benign 06/07/2016 [facility] 1view DX PROCEDURE: Chest 1view CLINICAL INFORMATION Tube placement/removal/reposition COMPARISON: 05/2015 multiple x-rays Left apical pneumothorax is no longer visualized. Decreased left lower neck subcutaneous emphysema. Left lower lobe atelectasis with small effusion. Stable right middle lobe atelectasis. No pneumothorax. Normal pulmonary vasculature. SL: 13 06/13/2015 [facility] 1view DX CLINICAL HISTORY: Tube placement. One view chest. Comparison 06/11/2015. Developing bibasilar subsegmental atelectasis. Trace left apical pneumothorax. (This was present in retrospect on previous study and is now smaller). Improving subcutaneous emphysema at the base of the neck on the left. SL:13 06/12/2015 [facility] 1view DX Examination: Chest x-ray, single view [...] No acute cardiopulmonary disease. SL: 16 06/11/2015 [facility] Chest 2 views DX Examination: Chest x-ray, 2 views History: Coughing Comparison: None. Findings: The lungs are clear and without focal consolidation. The cardiomediastinal silhouette is within normal limits. No pleural effusion or pneumothorax is seen. The osseous structures are without focal abnormality. IMPRESSION: No acute cardiopulmonary disease. SL: 16 06/07/2015 [facility] Stomach emptying NM Gastric Emptying Study. COMPARISON: [...] Moderate delay in gastric emptying. SL:13 05/30/2015 [facility] Digital Mammo Screen Lane [place] w marjorie - DIGITAL MAMMO SCREEN LANE MA W MARJORIE BILATERAL DIGITAL SCREENING MAMMOGRAM 3D/2D WITH CAD: 05/28/2015 CLINICAL: Routine/R92.2. 2D digital mammographic images and 3D digital tomosynthesis images were obtained in the CC and MLO projections. Current study was evaluated with a Computer Aided Detection (CAD) system. Comparison is made to exam dated: 06/11/2009 mammogram - [facility]. The tissue of both [...] screening mammogram is recommended. Andrew painting/kirt:05/28/2015 14:20:36 Train Dispatcher: Andrew Quiñones, [facility] This exam was dictated and interpreted by [id number] at [facility]. letter sent: Bilateral Benign Mammogram BI-RADS: 2 [facility] Bar[facility] Swallow w Esophagus Function DX EXAM: [...] reflux with liquid and hamburger. SL:13 05/17/2015 [facility] Consultation Notes No Data Provided for This Section Discharge Summaries No Data Provided for This Section History and Physicals No Data Provided for This Section Vital Signs Vital Sign Value Date Comments Source Temperature Oral (F) 97.6 F 06/27/2018 [facility] Heart Rate 86 06/27/2018 [facility] Systolic (mm Hg) 115 06/27/2018 [facility] Diastolic (mm Hg) 75 06/27/2018 [facility] BMI Calculated 26.85 06/27/2018 [facility] Weight 68.75 06/27/2018 [facility] Height 160.02 cm 06/27/2018 [facility] Heart Rate 84 06/13/2015 [facility] Systolic (mm Hg) 133 06/13/2015 [facility] Diastolic (mm Hg) 90 06/13/2015 [facility] Respitory Rate 16 06/13/2015 [facility] Temperature Oral (F) 98.3 F 06/13/2015 [facility] Respitory Rate 18 06/13/2015 [facility] Systolic (mm Hg) 130 06/13/2015 [facility] Diastolic (mm Hg) 80 06/13/2015 [facility] Temperature Oral (F) 98.5 F 06/13/2015 [facility] Heart Rate 94 06/13/2015 [facility] Respitory Rate 18 06/13/2015 [facility] Heart Rate 98 06/13/2015 [facility] Systolic (mm Hg) 124 06/13/2015 [facility] Diastolic (mm Hg) 77 06/13/2015 [facility] Temperature Oral (F) 98.9 F 06/13/2015 [facility] Systolic (mm Hg) 103 06/07/2015 [facility] Diastolic (mm Hg) 75 06/07/2015 [facility] Respitory Rate 15 06/07/2015 [facility] Systolic (mm Hg) 111 06/07/2015 [facility] Diastolic (mm Hg) 85 06/07/2015 [facility] Respitory Rate 21 06/07/2015 [facility] Respitory Rate 13 06/07/2015 [facility] Systolic (mm Hg) 107 06/07/2015 [facility] Diastolic (mm Hg) 80 06/07/2015 [facility] Heart Rate 68 06/07/2015 [facility] BMI Calculated 27.55 06/07/2015 [facility] Weight 68.324 06/07/2015 [facility] Height 157.48 cm 06/07/2015 [facility] BMI Calculated 27.55 06/07/2015 [facility] Weight 68.324 06/07/2015 [facility] Height 157.48 cm 06/07/2015 [facility] Encounters Location Location Details Encounter Type Encounter Number Reason For Visit Attending Provider ADM Date DC Date Status Source [facility] Outpatient [id number] [facility] 05/17/2015 05/18/2015 [facility] Outpatient Imaging [facility] Outpatient [id number] Krissy Garcia 05/28/2015 05/29/2015 [facility] Outpatient [id number] [facility] 05/30/2015 05/31/2015 [facility] Outpatient [id number] Kalyani Morris 06/07/2015 06/07/2015 [facility] Inpatient [id number] Moy Martinez 06/11/2015 06/13/2015 [facility] Outpatient [id number] Leydi Ledbetter 06/07/2016 06/08/2016 [facility] Outpatient [id number] JACOBO STEELE 09/14/2016 [facility] Outpatient [id number] PAUL HAMPTON 09/29/2016 [facility] Outpatient [id number] [facility] 01/13/2018 01/14/2018 [facility] Outpatient [id number] MARGARITA JENKINS 06/26/2018 [facility] [place] Outpatient [id number] [facility] Jeyson 06/27/2018 06/27/2018 [facility] Procedures Procedure Code Date Perfomer Comments Source Appendectomy<sup>1</sup> [id number] 2008 [facility] Cholecystectomy [id number] [facility] Excisional biopsy of breast mass<sup>2</sup> [id number] 2008 [facility] Fundoplication<sup>3</sup> [id number] 2008 [facility] Operation<sup>4</sup> [id number] 2007 [facility] Cervical ablation [id number] [facility] Assessment and Plan Assessment and Plan Date Source Extracted from:Title: Clinical Document Author: Moy Martinez DO Date: 06/13/15 Progress Daily [facility] Completed: May, 10:53 by Moy Martinez DO [...] SUB-Q Q12H 06/11/15 levofloxacin 500 mg PO [id number] 06/12/15 levothyroxine 25 microgram PO Q630AM 06/11/15 [...] assess the fundoplication and presence of leak QUANTITATIVE EQUITY HEAD: Jazmin Roldan and Isael Castillo SURGEON: Kalyani [...] right and left fady were identified. A [place] was placed around the esophagus and the [...] and present for the entire procedure. 06/13/2015 [facility] Plan of Care No Data Provided for This Section Social History Social History Date Source Social History TypeResponse Alcohol Current, Type Beer, Wine, Liquor. Frequency: 1-2 times per month. Previous treatment: None. Smoking Status Never smoker; Exposure to Tobacco Smoke None; Cigarette Smoking Last 365 Days No; Reg Smoking Cessation Counseling No entered on: 09/29/16 06/07/2015 [facility] Social History TypeResponse Alcohol Current, Type Beer, Wine, Liquor. Frequency: 1-2 times per month. Previous treatment: None. Smoking Status Never smoker; Exposure to Tobacco Smoke None; Cigarette Smoking Last 365 Days No; Reg Smoking Cessation Counseling No entered on: 06/26/18 06/07/2015 [facility] No data available for this section 05/29/2015 [facility] Family History No Data Provided for This Section Advance Directives No Data Provided for This Section Functional Status No Data Provided for This Section
--- NOTE | 2019-04-14 18:02 | Diagnostic Imaging Report ---
History: Dizziness, nausea, left side of the face numbness Comparison studies: CT head 04/14/2019 Technique: Sagittal T2; axial DWI, FLAIR, MPGR, T1, Coronal FLAIR. Intravenous contrast: None Findings: Scalp: Normal in signal . No masses . Bone marrow: Normal in signal intensity. Extra-axial: No masses, no fluid collections. Brain sulci: Appropriate for age. Ventricles: Normal in size . No hydrocephalus . Parenchyma: No abnormal signal intensities. No masses, hemorrhage, acute or chronic vascular insults. Suprasellar region: No abnormalities. Craniocervical junction: No abnormalities. Patent foramen magnum. No Chiari one malformation. Vessels: Normal flow-voids in the arteries and sinuses. IMPRESSION: 1. No abnormalities Signed by: DR Kareem Joseph M.D. on 04/14/2019 5:58 PM
[2019-04-14 19:39] VITALS: BP 128/83
--- NOTE | 2019-04-14 19:39 | NUR ---
Received the patient from ER in a stretcher with c/o chest pain.assessment done.iv to right ac.tele #5 placed.no resp.distress.snacks provided.bed locked and in lowest position.phone and call light within reach.instructed to call for assistance as needed.keep monitor the pt.
[2019-04-14 20:00] VITALS: BP 128/83
[2019-04-14 21:00] VITALS: BP 128/83
[2019-04-14] MEDS ORDERED: SIMVASTATIN 20 MG TAB PO SCH (21:00)
--- NOTE | 2019-04-14 21:13 | History and Physical ---
REASON FOR ADMISSION: A 49-year-old female, comes in with neck pain, radicular symptoms and chest pain. HISTORY OF PRESENTING ILLNESS: This is a 49-year-old. Ms. Jacques is a patient with hypercholesterolemia and hypothyroidism, who was in usual state of health until this morning when the patient woke up, had some paresthesias and numbness of the left face and also the neck, and was transferred to the chest. The patient went to work and at work, she experiences similar symptoms, which progressed and the patient came in to be checked out. Currently, the patient has symptoms of paresthesias of the face and also hyperesthesias of face. No chest pain at this time. FAMILY HISTORY: The patient's family history with hyperlipidemia. Father with hypertension, seizure disorder, and mother with stroke, cardiac disease and kidney failure. There are 3 brothers, 2 sisters, and 1 healthy son, . SOCIAL HISTORY: No EtOH. No IV drug abuse. No history of smoking either. MEDICATIONS: The patient takes are: 1. Lovaza 1 g capsules 4 daily. 2. Livalo 4 mg daily. 3. Valtrex 1 g daily. 4. Taking Fioricet as needed. 5. The patient also takes topiramate and TRAIN PLANNER Thyroid 97.5 mg. ALLERGIES: THE PATIENT HAS ALLERGIC TO PENICILLIN AND CODEINE. SURGICAL HISTORY: History of septoplasty, appendectomy and fundoplication for reflux esophagitis. REVIEW OF SYSTEMS: Positive for chest pain. No shortness of breath. No nausea, vomiting, or diarrhea. No constipation. No rectal bleeding. No hematochezia. No hematemesis. Positive for paresthesias and hyperesthesias of the left neck and also upper extremity, and the chest area. No diplopia. No blurry vision. No headaches either. PHYSICAL EXAMINATION: GENERAL: The patient is alert and oriented x3, in no acute distress. VITAL SIGNS: Stable. CVS: S1, S2 normal. Regular rate and rhythm. ABDOMEN: Nontender, nondistended. EXTREMITIES: No clubbing, no cyanosis, and/or no edema. LABORATORY VALUES: All within normal limits. CBC normal. CMP normal. Troponin was normal. TSH normal. The patient's CT of the brain was normal. MRI of the brain was normal and also chest x-ray is within normal limits. ASSESSMENT: 1. Chest pain, probably noncardiac. 2. Neck radiculopathy with symptoms of radiculopathy, will probably need a MRI as an outpatient. 3. History of hyperlipidemia. We will continue on Lovaza and Livalo. 4. History of hypothyroidism. Continue on Thyroid. For now, the patient seems to be very normal. We will trend her troponin x2 and if it is negative, the patient can be discharged home. Further recommendation per clinical course and will be followed up as an outpatient with MRI of the C-spine. MD ADONIS BurgessJ/MODL /[id number]
[2019-04-14 22:00] LABS: INR 0.85; PARTIAL THROMBOPLASTIN TIME 29.7 seconds (23.8-35.5); PROTHROMBIN TIME 12.1 seconds (11.9-14.5)
[2019-04-14] MEDS: ACETAMINOPHEN 325 MG TAB PO PRN (22:12)
[2019-04-14] MEDS ORDERED: LIVALO4 MG PO (22:18)
[2019-04-14] MEDS ORDERED: NATURE-THROID65 MG PO (22:18)
--- NOTE | 2019-04-14 22:35 | NUR ---
Spoke to md Jama Forte who is covering for regarding carotid doppler study. is ok with do it tomorrow.
[2019-04-15 00:29] LABS: CREATINE KINASE 53 IU/L (29-168)
[2019-04-15 00:40] VITALS: BP 90/72
--- NOTE | 2019-04-15 01:11 | NUR ---
No chest pain right now.resting well.blood yudith and sent to the lab .tolerated well.
[2019-04-15] MEDS: METOPROLOL TARTRATE 25 MG TAB PO SCH (03:30)
[2019-04-15] MEDS ORDERED: ENOXAPARIN SOD INJ 60 MG/0.6 ML SYR SC SCH (03:30)
[2019-04-15] MEDS: FAMOTIDINE 20 MG/2 ML VIAL IV SCH (03:30)
[2019-04-15 04:00] VITALS: BP 98/57
[2019-04-15 06:26] LABS: BASOPHILS % 0.4 % (0.0-1.0); EOSINOPHILS # (AUTO) 0.2 (0.0-0.4); EOSINOPHILS % 1.8 % (0.0-6.0); HEMATOCRIT 40.9 % (34.2-44.1); HEMOGLOBIN 13.7 g/dL (12.0-16.0); LYMPHOCYTES # (AUTO) 2.2 (1.0-3.2); LYMPHOCYTES % 24.9 % (18.0-39.1); MEAN CORPUSCULAR HEMOGLOBIN 29.3 pg (28-32); MEAN CORPUSCULAR HGB CONC 33.5 g/dL (31-35); MEAN CORPUSCULAR VOLUME 87.4 fL (81-99); MONOCYTES # (AUTO) 0.6 (0.2-0.8); MONOCYTES % 7.2 % (4.4-11.3); NEUTROPHILS # (AUTO) 5.8 (2.1-6.9); NEUTROPHILS % 65.1 % (38.7-80.0); PLATELET COUNT 317 x10e3/uL (140-360); RED BLOOD COUNT 4.68 x10e6/uL (3.6-5.1); RED CELL DISTRIBUTION WIDTH 12.5 % (11.7-14.4)
[2019-04-15 06:57] LABS: ALANINE AMINOTRANSFERASE 18 IU/L (0-55); ALBUMIN/GLOBULIN RATIO 1.7 (0.8-2.0); ALKALINE PHOSPHATASE 45 IU/L (40-150); ANION GAP 16.2 mmol/L (8-16); BLOOD UREA NITROGEN 18 mg/dL (7-26); BUN/CREATININE RATIO 22 (6-25); CALCIUM 9.7 mg/dL (8.4-10.2); CARBON DIOXIDE 25 mmol/L (22-29); CHLORIDE 104 mmol/L (98-107); CHOL/HDL RATIO 4.1 (3.0-3.6); CHOLESTEROL 177 MD/DL (0-199); CREATININE, SERUM 0.81 mg/dL (0.57-1.11); EST GLOMERULAR FILTRATION RATE > 60 ML/MIN (60-); GLUCOSE 95 mg/dL (74-118); HDL CHOLESTEROL 43 MG/DL (40-60); LDL CHOLESTEROL 113 MG/DL (60-130); MAGNESIUM 1.9 MG/DL (1.3-2.1); POTASSIUM 4.2 mmol/L (3.5-5.1); SODIUM 141 mmol/L (136-145); TRIGLYCERIDES 104 MG/DL (0-149)
--- NOTE | 2019-04-15 07:00 | NUR ---
Bed side shift report given to the oncoming Rn.stable condition.
[2019-04-15] MEDS: ACETAMINOPHEN 325 MG TAB PO PRN ×2 (07:04→13:45)
--- NOTE | 2019-04-15 07:17 | NUR ---
Received patient lying in bed with eyes open. Respiration even and unlabored without SOB. Call light in reach.
[2019-04-15 07:33] LABS: CREATINE KINASE MB 0.5 ng/mL (0-5.0)
[2019-04-15 07:45] VITALS: BP 110/66
--- NOTE | 2019-04-15 08:53 | NUR ---
Patient went to MRI at this time
[2019-04-15] MEDS ORDERED: ASPIRIN 81 MG ENTERIC COATED PO SCH (09:00)
[2019-04-15 09:20] VITALS: BP 110/66
--- NOTE | 2019-04-15 10:06 | Progress Note ---
DATE: SUBJECTIVE: The patient is a 49-year-old female who comes in with chest pain, neck pain, and paresthesias and hyperesthesias. Currently, no chest pain. No shortness of breath. Continues with hyperesthesias in the neck and the face area. No nausea, vomiting, or diarrhea. No constipation. No rectal bleeding. Otherwise, the patient is fine. Does complain of some headaches. OBJECTIVE: VITAL SIGNS: Today temperature is 96.9, pulse of 59, respirations of 18, blood pressure is 98/57, pulse oximetry of 98 percent. HEENT: Normocephalic, atraumatic. Pupils reactive to light and accommodation. CVS: S1, S2 normal. NECK: Tenderness in the left side. ABDOMEN: Nontender, nondistended. EXTREMITIES: No clubbing, no cyanosis, no edema. LABORATORY VALUES: CBC was normal. White count is 8.9, hemoglobin 13.7. Chemistries are pending today. Troponins have been trended to be negative so far. Urine with moderate bacteria. IMAGING STUDIES: Brain MRI, brain CT. Chest x-ray all within normal limits. ASSESSMENT: 1. This is a 49-year-old female with chest pain, dizziness, weakness, and neck radiculopathy. 2. History of hyperlipidemia. 3. History of hypothyroidism. PLAN: Continue with monitoring the patient's troponin trend, it should be negative. Echocardiogram has been ordered. Carotid Doppler has been ordered. The patient is also ordered a cervical MRI, which is pending. Further recommendation per clinical course. Most likely, the patient can be discharged today. MD SUSHILA Burgess/EFRENL /[id number]
[2019-04-15 12:04] VITALS: BP 111/60
--- NOTE | 2019-04-15 13:13 | Diagnostic Imaging Report ---
History: Headache, left facial numbness for one day Comparison studies: MRI of the brain 04/14/2019 Technique: Sagittal T1, T2 and IR, axial T2 and axial gradient echo Intravenous contrast: None Findings: Alignment: Normal lordosis. No scoliosis. Cervicomedullary junction: No abnormalities. Patent foramen magnum. Soft tissues: No T2 hyperintense inflammatory changes. Spinal cord: Normal in size and signal from the foramen magnum through T4 Vertebrae: Normal in height and signal intensity. No fractures, infection or neoplasm. Degenerative changes: No significant degenerative changes with patent canal and foramina. IMPRESSION: 1. Normal MRI of the cervical spine Signed by: DR Kareem Joseph M.D. on 04/15/2019 1:09 PM
--- NOTE | 2019-04-15 14:22 | NUR ---
Patient is to be discharge today to home. Peripheral IV to right AC discontinued, catheter tip intact, no bleeding noted. Patient insisted to go home by herself, patient states "I came here by myself, I would like to drive my car home". Patient has no activity restriction. She is alert and oriented time 4, have not received any narcotic medication. Respiration even and unlabored without SOB. Belongings are with the patient. Accompanied patient to the parking lot with her belongings.
--- NOTE | 2019-04-15 17:54 | Consultation ---
DATE OF CONSULTATION: 04/15/2019 Cardiology Consult Note REASON FOR CONSULT: Chest pain. CHIEF COMPLAINT: Chest pain and facial numbness. HISTORY OF PRESENT ILLNESS: The patient is a 49-year-old female with no history of cardiovascular issues, who presents with pain in her neck, numbness in her face, that transfer into her chest, and woke her up from sleeping yesterday morning. She went to work and experienced similar symptoms, so came to the hospital to get checked out. She has good exercise tolerance. Does not experience any chest pain or shortness of breath with exertion. She has no early family history of CAD. She does not smoke. REVIEW OF SYSTEMS: As per HPI, otherwise negative. FAMILY HISTORY: No family history of early CAD or sudden cardiac . SOCIAL HISTORY: The patient does not smoke, drink, or abuse drugs. OUTPATIENT MEDICATIONS: Reviewed. ALLERGIES: SHE IS ALLERGIC TO PENICILLIN, CODEINE. SURGICAL HISTORY: Noncontributory. OBJECTIVE: VITAL SIGNS: Temperature afebrile, pulse 70, respiratory rate 17, blood pressure 110/66, and saturating 98% on room air. GENERAL: Young female, in no acute distress. CARDIOVASCULAR: Regular rate and rhythm. No murmurs, rubs, or gallops. LUNGS: Clear to auscultation bilaterally. ABDOMEN: Soft, nontender, nondistended. NEURO AND PSYCH: Alert and oriented to person, place, and time. Normal affect. INPATIENT MEDICATIONS: Reviewed. LABORATORY DATA: Reviewed. TELEMETRY DATA: Reviewed, shows normal sinus rhythm. Echocardiogram reviewed, essentially normal. ASSESSMENT AND PLAN: Chest pain. PLAN: Chest pain is noncardiac, already ruled out for acute DC with serial troponins. Echocardiogram is normal. Okay to be discharged from cardiovascular standpoint. Thank you for this consult. We will continue to follow. MD ALAN Brower/BERNADINE /[id number]
== END 2019-04-15 14:22 | disposition home or self-care (01) ==
LOC: ER 14:02 → ERHOLD 17:15 → MED/SURG 18:57
PROVIDERS: ADMIT Family Medicine; ATTEND Family Medicine
DX: R07.89 Other chest pain (principal); M54.12 Radiculopathy, cervical region; E78.5 Hyperlipidemia, unspecified; E03.9 Hypothyroidism, unspecified; R42 Dizziness and giddiness; R53.1 Weakness; Z83.438 Family history of other disorder of lipoprotein metabolism and other lipidemia; Z82.49 Family history of ischemic heart disease and other diseases of the circulatory system; Z82.0 Family history of epilepsy and other diseases of the nervous system; Z82.3 Family history of stroke; Z84.1 Family history of disorders of kidney and ureter; Z88.5 Allergy status to narcotic agent; Z88.0 Allergy status to penicillin
CPT/HCPCS: 36415 ×2; 70450; 70551; 71045; 72141; 80053 ×2; 80061; 81001; 82550 ×2; 82553 ×2; 83690; 83735 ×2; 83880; 84100; 84484 ×2; 85025 ×2; 85610; 85730; 93005; 93306; 93880; 99284; G0378 ×2; J1650

== ENCOUNTER → 2022-09-01 | Day surgery (SDC) | payer OTHER ==
[~2022-09-01] MED LIST changes: +FENTANYL CITRATE/PF 100MCG/2 ML INJ ONE; +HYOSCYAMINE SULFATE 0.5 MG/ML INJ ONE; +LIDOCAINE HCL 2% LOCAL INJ 5 ML SDV VIAL INJ ONE; +LIVALO4 MG PO; +MIDAZOLAM HCL 2 MG/2 ML VIAL ONE; +NATURE-THROID65 MG PO; +ONDANSETRON HCL INJ 2MG/ML 2ML 2 MG/ML VIAL ONE; +POVIDONE IODINE 0.05% 0.05 % ML PO ONE; +PROPOFOL IV EMULSION 10 MG/ML 20 ML VIAL ONE; +THYROID COMPOUND PO; +ZYRTEC10 MG
[2022-09-01 13:00] VITALS: BP 121/81
== END | disposition home or self-care (01) ==
LOC: OR 09:09
PROVIDERS: ATTEND Internal Medicine Gastroenterology
DX: K21.00 Gastro-esophageal reflux disease with esophagitis, without bleeding (principal); D12.0 Benign neoplasm of cecum; D12.3 Benign neoplasm of transverse colon; K29.50 Unspecified chronic gastritis without bleeding; K57.30 Diverticulosis of large intestine without perforation or abscess without bleeding; K64.8 Other hemorrhoids; Z71.3 Dietary counseling and surveillance; Z87.19 Personal history of other diseases of the digestive system; E78.5 Hyperlipidemia, unspecified; E03.9 Hypothyroidism, unspecified; Z79.899 Other long term (current) drug therapy; Z88.6 Allergy status to analgesic agent; Z88.0 Allergy status to penicillin; Z01.810 Encounter for preprocedural cardiovascular examination; Z68.26 Body mass index [BMI] 26.0-26.9, adult
CPT/HCPCS: 43239; 45385; 81025; 93005; C9113; J1980; J2001; J2250; J2405; J2704; J3010